=== PATIENT | female | born 1970 | race African-American/Black ===

== ENCOUNTER 2023-11-13 10:21 | Outpatient (CLI) | payer MEDICAID, SELFPAY ==
--- NOTE | 2023-11-13 10:31 | XRR_ITS ---
PROCEDURE INFORMATION: Exam: XR Left Shoulder Exam date and time: 11/13/2023 10:35 AM Age: 52 years old Clinical indication: Injury or trauma; Other: Lifting injury; Work related; Sprain or strain; Shoulder; Left; Injury date: 3-4 weeks ago; Injury details: Lifted heavy object, belives he tore something, hurts when raised; Additional info: M25.512 - pain in left shoulder TECHNIQUE: Imaging protocol: Radiologic exam of the left shoulder. Views: 2 or more views. COMPARISON: No relevant prior studies available. FINDINGS: Bones/joints: Moderate glenohumeral spurring with subarticular cysts and irregularity of the inferior glenoid. Mild acromioclavicular spurring. No fracture or dislocation.. Soft tissues: Normal. XR/XR shoulder LT min 2V* [id number] IMPRESSION: Osteoarthritis particularly involving the inferior glenoid.
== END 2023-11-13 10:22 | disposition home or self-care (01) ==
PROVIDERS: PCP Nurse Practitioner Family; Visit Provider Nurse Practitioner Family
DX: M25.512 Pain in left shoulder (principal); M19.012 Primary osteoarthritis, left shoulder; M25.712 Osteophyte, left shoulder; M85.612 Other cyst of bone, left shoulder
CPT/HCPCS: 73030

== ENCOUNTER 2023-12-30 13:57 | Outpatient (CLI) | payer MEDICAID, SELFPAY ==
--- NOTE | 2023-12-30 14:15 | US_ITS ---
WS: [id number] ULTRASOUND SOFT TISSUES LEFT supraclavicular region. HISTORY: R22.9 - Localized swelling, mass and lump, unspecified COMPARISON: None available. TECHNIQUE: 2-D and color Doppler imaging is submitted. There is an abnormal mass centered in the LEFT supraclavicular region with increased vascularity. Thi s is a hypoechoic mass with a few cystic areas and increased vascularity. The largest mass measures 3 .9 x 5.0 x 3.7 cm. There are additional masses which are much smaller along the LEFT cervical chain. US/US soft tissue head neck [id number] IMPRESSION: Abnormal soft tissue masses along the LEFT supraclavicular and cervical chain. Favor lymphadenopathy. Findings suspicious for metastatic disease or lymphadeno germania from lymphoma. Recommend additional evaluation to determine the source of the adenopathy.
--- NOTE | 2023-12-30 16:00 | MR_ITS ---
WS: [id number] MRI LEFT SHOULDER HISTORY: M25.512 - Pain in left shoulder COMPARISON: None available. TECHNIQUE: Multiplanar sequences of the shoulder joint are submitted. Mild AC joint arthropathy. Distal clavicular osteophyte encroaches upon the distal supraspinatus tend on. No significant subacromial impingement. No fluid in the subacromial or subdeltoid bursa. Normal p osition of the biceps tendon. No rotator cuff muscle atrophy or edema. Mild tendinopathy in the distal supraspinatus but no tear. T here is breathing motion artifact limiting evaluation. Subscapularis and infraspinatus tendons appear appropriate. Suspect superior labral tear. There are multiple T2 foci within the bone surrounding the shoulder highly concerning for metastatic bone disease. Largest area of is involvement is the proximal LEFT humerus measuring 4.4 x 5.1 cm. The re are additional enlarged lymph nodes in the LEFT chest wall adjacent to the pectoralis muscle. MR/MR shoulder LT wo con* [id number] IMPRESSION: 1. Extensive bone lesions highly suspicious for metastatic disease involving t he osseous structures of the shoulder. 2. Lymphadenopathy, partially visualized along the anterior LEFT chest wall. R ecommend additional evaluation of the chest abdomen and pelvis to identify etio logy of the lymphadenopathy. 3. Mild AC joint arthropathy. 4. Mild tendinopathy in the distal supraspinatus tendon. 5. Superior labral tear. 6. No muscle atrophy or edema.
== END 2023-12-30 13:58 | disposition home or self-care (01) ==
LOC: RAD 13:57
PROVIDERS: PCP Nurse Practitioner Family; Visit Provider Registered Nurse
DX: R22.9 Localized swelling, mass and lump, unspecified (principal); M89.9 Disorder of bone, unspecified; M12.9 Arthropathy, unspecified
CPT/HCPCS: 73221; 76536

== ENCOUNTER → 2023-12-31 11:53 | Outpatient (BNVA) | payer MEDICAID, SELFPAY | PROVIDERS: PCP Nurse Practitioner Family; Visit Provider Registered Nurse | DX: C79.51 Secondary malignant neoplasm of bone (principal) | CPT/HCPCS: 80053; 85025 ==

== ENCOUNTER 2024-01-22 11:48 | Oncology outpatient (recurring) (ONCR) | payer MEDICAID, SELFPAY ==
[2024-01-22 13:49] LABS: Basophils # 0.1 10^3/uL (0.0-0.1); Basophils % 0.6 %; Eosinophils # 0.1 10^3/uL (0.0-0.8); Eosinophils % 1.5 %; Hematocrit 34.6 % (37-53); Lymphocytes # 1.4 10^3/uL (0.8-4.8); Lymphocytes % 17.8 %; Mean Corpuscular HGB Conc 33.5 g/dL (30-55); Mean Corpuscular Hemoglobin 31.4 pg (27-33); Mean Corpuscular Volume 93.8 fl (82-101); Mean Platelet Volume 9.2 fL (7.4-10.4); Monocytes # 0.4 10^3/uL (0.2-0.9); Monocytes % 5.2 %; Neutrophils # 5.54 10^3/uL (1.8-7.7); Neutrophils % 70.9 %; Nucleated Red Blood Cells % 0.3 %; Platelet Count 277 10^3/cmm (157-399); Red Blood Count 3.69 10^6/uL (3.85-5.65); Red Cell Distribution Width 13.6 % (12.1-15.1); White Blood Count 7.82 10^3/uL (3.29-11.43)
[2024-01-22 14:14] LABS: Alanine Aminotransferase 15 U/L (0-41); Albumin Level 3.7 g/dL (3.5-5.2); Alkaline Phosphatase 232 U/L (40-130); Anion Gap 14.9 (5-19); Aspartate Amino Transferase 22 U/L (0-40); Blood Urea Nitrogen 15 mg/dL (6-20); Calcium 9.2 mg/dL (8.5-10.5); Carbon Dioxide 25 mmol/L (22-29); Chloride 105 mmol/L (98-107); Creatinine Clr Calc Pharmacy 96.6224; Globulin 3.5 g/dL (1.3-4.6); Glucose 83 mg/dL (65-115); Osmolality Calculated 292 mOsm/kg (285-295); Potassium 3.9 mmol/L (3.5-5.1); Sodium 141 mmol/L (136-145); Total Bilirubin 0.3 mg/dL (0.15-1.2); Total Protein 7.2 g/dL (6.6-8.7)
== END 2024-02-02 23:59 | disposition home or self-care (01) ==
PROVIDERS: PCP Nurse Practitioner Family; Visit Provider Internal Medicine Medical Oncology
DX: C61 Malignant neoplasm of prostate (principal)
CPT/HCPCS: 36415; 80053; 84153; 85025

== ENCOUNTER 2024-02-05 11:22 | Day surgery (SDC) | payer MEDICAID, SELFPAY ==
--- NOTE | 2024-02-05 11:40 | SC_ITS ---
WS: [id number] Exam: C-arm FL for CVA [id number] Date/Time of Exam: 02/05/2024 12:48 PM Reason For Exam: port placement Multiple limited intraoperative C-arm images of the upper RIGHT chest are submitted. Final images dep ict a right-sided Port-A-Cath in place. Images were obtained for procedural purposes and visualizatio n.
[2024-02-05 11:53] VITALS: BP 130/79; PULSE 63; RESP 18; TEMP 36.3; O2SAT 98
[2024-02-05 11:56] VITALS: BMI 31.4
[2024-02-05] MEDS: sodium chloride 0.9% 1,000 ML 30 ML IV (12:16)
--- NOTE | 2024-02-05 12:59 | ANES.PREANE2 ---
Pre-Anesthetic Assessment Height/Weight: Height 5 ft 6 in Weight 195 lb Temp Pulse Resp BP Pulse Ox O2 Del Method 97.3 F L 63 18 130/79 98 Room Air 02/05/24 11:53 02/05/24 11:53 02/05/24 11:53 02/05/24 11:53 02/05/24 11:53 02/05/24 12:02 Preop Diagnosis: Prostate cancer Operation Date: 02/05/24 13:00 Proposed Procedures p Portacath Placement 07121, Z95.828(Not Applicable) - Raji Brito MD Was Beta Anna Marie taken within 24 hours: N/A Was Clonidine taken within 24 hours: N/A Last intake: Intake Last Liquid Date 02/05/24 Last Liquid Time 06:30 Last Solid Date 02/04/24 Last Solid Time 17:30 Social No alcohol and No tobacco Exam alert, oriented x 3, clear to auscultation bilaterally and regular rate & rhythm Airway Submandibular: within normal limits Cervical ROM: within normal limits Mallampati: Class II Dentition: full Anesthetic Plan ASA status: 3 Anesthesia: MAC Other: No prior issues with anesthesia NPO since yesterday Prior smoker, quit a year ago Stage IV prostate cancer with mets to the bone. Plan for chemotherapy following port placement METs greater than 4 Labs 01/22/2024 reviewed Plan for MAC anesthetic Medications/Allergies Home Medications Medication Instructions Recorded Confirmed Last Taken Type bicalutamide 50 mg tablet 50 mg PO DAILY #30 tabs 01/22/24 02/04/24 02/04/24 Rx acetaminophen 325 mg tablet 325 mg PO QID PRN Pain, Mild 01/29/24 02/05/24 02/05/24 History (Tylenol) enzalutamide 40 mg tablet 160 mg (4 x 40 mg) PO DAILY #120 01/30/24 02/04/24 02/04/24 Rx tabs ferrous sulfate 325 mg (65 mg 325 mg PO BID 02/05/24 02/05/24 02/05/24 History iron) tablet (FeroSul) Allergies Allergy/AdvReac Type Severity Reaction Status Date / Time No Known Allergies Allergy Verified 02/04/24 12:26 Current Medications Generic Name Dose Route Start Last Admin Trade Name Freq PRN Reason Stop Dose Admin Sodium Chloride 1,000 mls @ 30 mls/hr 02/05/24 11:45 02/05/24 12:16 Sodium Chloride 0.9% IV 02/06/24 11:44 30 mls/hr .Q24H LORA Administration PFSH Anesthesia Medical History Heatstroke Prostate cancer Surgical History History of lymph node biopsy (2019) History of prostate biopsy (01/19/24) Family History Father Colon cancer Brother Bone cancer Other Diabetes Hypertension Social History Smoking and tobacco/nicotine status: former use of tobacco/nicotine Quit status (tobacco/nicotine): has quit using Year quit tobacco: 2022 Former quit date comment: He previously smoked 1 PPD. Alcohol intake: former Year of sobriety/quit date alcohol: 2022 Former alcohol use details: He was never a heavy drinker. Substance/Drug Use: former Adopted: No Caregiver/support person: No Lives independently: No service: No Current occupational status: unemployed Do you think of yourself as: Straight/Heterosexual Current gender identity: Male Data Anesthesia Cardiac Studies: No Data to Display
--- NOTE | 2024-02-05 13:01 | W.PM.OPSUD ---
Surgery/Procedure H&P Update DATE OF PROCEDURE: February 05, 2024 DATE H&P PERFORMED: 01/29/24 H&P UPDATE INFORMATION: I have reviewed H&P completed within last 30 days, I have examined patient prior to procedure and No changes to prior documentation PREOP DIAGNOSIS: Prostate cancer PLANNED PROCEDURE: Operation Date: 02/05/24 13:00 Proposed Procedures p Portacath Placement 18461, Z95.828(Not Applicable) - Raji Brito MD
[2024-02-05] MEDS: ceFAZolin 2,000 mg SDV 2000 MG IVP (13:12)
[2024-02-05] MEDS: heparin, porcine 1,000 unit/mL INJ 10 mL 10000 UNIT INTRACATH (13:43)
[2024-02-05] MEDS: lidocaine-epi 1% 20 mL INJ 3 ML INJECTION (13:44)
[2024-02-05] MEDS: BUPivacaine 0.25% INJ 10 mL 3 ML INJECTION (13:45)
--- NOTE | 2024-02-05 13:59 | W.PM.BPONFUL ---
Pathology: None Implant(s): Port-A-Cath Anesthesia: MAC Complications: None Brief history/preop diagnosis: 53-year-old male history of prostate cancer who requires a port for chemotherapy. Full operative report: Patient was brought into the operating room and a timeout was carried out. Procedure was done under MAC. Patient was placed supine with the arms tucked and in Trendelenburg. Patient was prepped and draped in the usual sterile fashion. Using ultrasound guidance the right internal jugular vein was accessed. A guidewire was then placed down to the atriocaval junction using fluoroscopy. The finder needle was removed and the guidewire was secured. I then turned my attention to creating a pocket over the right chest. Make sure to locally infiltrated using plain lidocaine and bupivacaine at the site of the pocket and throughout the tunnel site. I confirmed adequate hemostasis at the pocket. I then proceeded to place the port that was already preassembled and flushed with heparinized saline and the chest pocket. I tunneled the catheter from the chest to the neck at the site where I accessed the internal jugular vein. I measured and adjusted the length of the catheter so it would reach the atrial caval junction. At this point, I used a dilator to dilate the tract into the internal jugular vein using fluoroscopy. I removed the guidewire and proceeded to thread the central venous catheter through the introducer. In the process, I removed the sheath as a completely pushed the catheter into the internal jugular vein. I then confirmed adequate placement of the catheter by performing intraoperative interpretation of fluoroscopy. The tip of the catheter was confirmed to be placed in the atriocaval junction. There were no kinks noted throughout the trajectory of the catheter. I then proceeded to test the port and was satisfied with its functionality. I proceeded to flushed the catheter without any issues. I then hep-locked the port. Skin was closed using deep dermal 3-0 Vicryl, subcuticular 4-0 Monocryl, and Dermabond. Patient was then transferred to PACU without any complications. Condition: Stable Dispostion: Home
[2024-02-05 14:04] VITALS: BP 125/84; PULSE 68; RESP 16; TEMP 36.2; O2SAT 97
[2024-02-05 14:10] VITALS: BP 130/99; PULSE 79; RESP 16; O2SAT 98
[2024-02-05 14:15] VITALS: BP 131/78; PULSE 65; RESP 16; O2SAT 99
[2024-02-05 14:20] VITALS: BP 129/83; PULSE 62; RESP 16; TEMP 36.2; O2SAT 99
[2024-02-05 14:23] VITALS: BP 125/80; PULSE 64; RESP 17; TEMP 36.4; O2SAT 100
--- NOTE | 2024-02-05 15:02 | ANE.PACU2 ---
Inpatient post-anesthesia follow up: Airway intact: Yes Vital signs: Temperature 97.6 F Pulse Rate 64 Respiratory Rate 17 Blood Pressure 125/80 Pulse Oximetry 100 Oxygen Delivery Me thod Room Air Oxygen Flow Rate Fraction of Inspir ed Oxygen Hydration adequate: Yes Nausea and vomiting: No Pain level: 1 Mental status: Baseline
== END 2024-02-05 15:02 | disposition home or self-care (01) ==
PROVIDERS: PCP Nurse Practitioner Family; Visit Provider Student in an Organized Health Care Education/Training Program
PROC: (CPT 36561; principal; 2024-02-05 13:00)
DX: C61 Malignant neoplasm of prostate (principal); Z87.891 Personal history of nicotine dependence
CPT/HCPCS: 36561; 76000; 77001; C1788; J0690; J1644; J2250; J2704; J3010; J3490; J7030

== ENCOUNTER 2024-02-14 12:58 | Inpatient (IN) | payer MEDICAID, SELFPAY ==
[2024-02-14] VITALS (7 sets, daily range): BP systolic 128–159; BP diastolic 75–81; PULSE 78–89; RESP 15–16; TEMP 36.8–37.2; O2SAT 95–100
--- NOTE | 2024-02-14 13:45 | P.HP_ITS ---
Providers/Chief Complaint Admitting Physician: Gennaro Welsh MD Primary Care Provider: GADIEL Oakes Chief Complaint: 278-2 History of Present Illness Desi Lee is a 53 year old male with a past medical history of prostate cancer diagnosed in 2019, who presents to [facility] as a transfer from [facility], due to erythema, swelling, tenderness, warmth around his recent right chest port placement for chemotherapy. Patient tells me that he got chemotherapy last Friday, he is due for chemotherapy next week, for the last few days he has noted increased swelling, erythema, drainage around his right chest port site. He does tell me that when he did get chemotherapy they did access his port, but no evidence of infection at that point. No fevers, does report fatigue, malaise, no nausea, vomiting, no chest pain. Review of Systems Const: Reports: chills, fatigue and malaise Card: Denies: chest pain Resp: Denies: dyspnea GI: Denies: abdominal pain : Denies: flank pain Medications/Allergies Home Medications Medication Instructions Recorded Confirmed Last Taken Type bicalutamide 50 mg tablet 50 mg PO DAILY #30 tabs 01/22/24 02/10/24 02/04/24 Rx acetaminophen 325 mg tablet 325 mg PO QID PRN Pain, Mild 01/29/24 02/10/24 02/05/24 History (Tylenol) enzalutamide 40 mg tablet 160 mg (4 x 40 mg) PO DAILY #120 01/30/24 02/10/24 02/04/24 Rx tabs ferrous sulfate 325 mg (65 mg 325 mg PO BID 02/05/24 02/10/24 02/05/24 History iron) tablet (FeroSul) lorazepam 1 mg tablet 0.5 - 1 mg (0.5 - 1 x 1 mg) PO Q6H 02/06/24 02/10/24 Unknown Rx PRN severe nausea #30 tabs prednisone 5 mg tablet 5 mg PO BID #42 tabs 02/06/24 02/10/24 Unknown Rx prochlorperazine maleate 10 mg 10 mg PO Q4H PRN mild nausea #30 02/06/24 02/10/24 Unknown Rx tablet (Compazine) tabs hydrocodone 5 mg-acetaminophen 325 1 tab PO Q4H PRN pain 5 days #30 02/10/24 02/10/24 Unknown Rx mg tablet tabs lorazepam 1 mg tablet 0.5 - 1 mg (0.5 - 1 x 1 mg) PO Q6H 02/10/24 Unknown Rx PRN Severe Nausea #30 tabs prednisone 5 mg tablet 5 mg PO BID #42 tabs 02/10/24 Unknown Rx prochlorperazine maleate 10 mg 10 mg PO Q4H PRN Mild Nausea #30 02/10/24 Unknown Rx tablet (Compazine) tabs Allergies Allergy/AdvReac Type Severity Reaction Status Date / Time No Known Allergies Allergy Verified 02/04/24 12:26 PFSH Acute PFSH: Medical History Heatstroke Prostate cancer Surgical History History of lymph node biopsy (2019) History of prostate biopsy (01/19/24) Family History Father Colon cancer Brother Bone cancer Other Diabetes Hypertension Social History Smoking and tobacco/nicotine status: former use of tobacco/nicotine Quit status (tobacco/nicotine): has quit using Year quit tobacco: 2022 Former quit date comment: He previously smoked 1 PPD. Alcohol intake: former Year of sobriety/quit date alcohol: 2022 Former alcohol use details: He was never a heavy drinker. Substance/Drug Use: former Adopted: No Caregiver/support person: No Lives independently: No service: No Current occupational status: unemployed Do you think of yourself as: Straight/Heterosexual Current gender identity: Male Physical Exam Const: COMMON NORMALS: no acute distress and patient oriented x3 Chest: OTHER: Right chest port, with surrounding erythema, swelling, tenderness, warmth Resp: COMMON NORMALS: normal respiratory effort, No retractions, No use of accessory muscles and clear to auscultation bilaterally AUSCULTATION: clear to auscultation bilaterally Cardio: COMMON NORMALS: no JVD, regular rate, regular rhythm, S1 normal heart sound present and S2 normal heart sound present RATE: regular rate RHYTHM: regular rhythm HEART SOUNDS: S1 normal heart sound present and S2 normal heart sound present GI: COMMON NORMALS: Normal to inspection, nondistended, normoactive bowel sounds present, Soft to palpation and non-tender Extremity: COMMON NORMALS: no calf tenderness and no pedal edema Neuro: COMMON NORMALS: patient oriented x3 Psych: COMMON NORMALS: mental status grossly normal A&P Assessment and plan (1) Infection due to Port-A-Cath: (2) Metastatic cancer to bone: (3) Prostate cancer: Plan Right chest Port-A-Cath infection ? Immunocompromise state, prostate cancer on chemotherapy ? Plan ? Placed on isolation precautions ? Blood cultures ? Follow wound cultures and blood cultures drawn from [facility] ? Neurosurgery consulted ? Continue vancomycin -continue Zosyn # Follow inflammatory markers # Full code Lovenox for DVT prophylaxis Attestations Medical Necessity Statement*: Patient requires hospitalization, inpatient, greater than 2 midnights, for right chest port infection Diagnoses Infection due to Port-A-Cath T80.219A Metastatic cancer to bone C79.51 Prostate cancer C61
--- NOTE | 2024-02-14 14:28 | PM.CONSULT ---
Providers/Reason For Consult Consulting Physician/Specialty*: General Surgery Reason for Consult*: Or signs infection Attending Physician: Gennaro Welsh MD Primary Care Provider: GADIEL Oakes History of Present Illness History of Present Illness Desi Lee is a 53 year old male 53-year-old male with history of prostate cancer receiving chemotherapy. He was transferred to our hospital from an outside institution as this morning and he noted significant drainage from his Chemo-Port site. He had a port placed on February 04 and was able to receive 1 chemotherapy last week. He states that the area also appears warm to the touch and slightly tender. He was referred to our institution with a concern of port site infection. Review of Systems General: Reports: 10 or more systems reviewed and unremarkable except in HPI and below Medications/Allergies Home Medications Medication Instructions Recorded Confirmed Last Taken Type bicalutamide 50 mg tablet 50 mg PO DAILY #30 tabs 01/22/24 02/10/24 02/04/24 Rx acetaminophen 325 mg tablet 325 mg PO QID PRN Pain, Mild 01/29/24 02/10/24 02/05/24 History (Tylenol) enzalutamide 40 mg tablet 160 mg (4 x 40 mg) PO DAILY #120 01/30/24 02/10/24 02/04/24 Rx tabs ferrous sulfate 325 mg (65 mg 325 mg PO BID 02/05/24 02/10/24 02/05/24 History iron) tablet (FeroSul) lorazepam 1 mg tablet 0.5 - 1 mg (0.5 - 1 x 1 mg) PO Q6H 02/06/24 02/10/24 Unknown Rx PRN severe nausea #30 tabs prednisone 5 mg tablet 5 mg PO BID #42 tabs 02/06/24 02/10/24 Unknown Rx prochlorperazine maleate 10 mg 10 mg PO Q4H PRN mild nausea #30 02/06/24 02/10/24 Unknown Rx tablet (Compazine) tabs hydrocodone 5 mg-acetaminophen 325 1 tab PO Q4H PRN pain 5 days #30 02/10/24 02/10/24 Unknown Rx mg tablet tabs lorazepam 1 mg tablet 0.5 - 1 mg (0.5 - 1 x 1 mg) PO Q6H 02/10/24 Unknown Rx PRN Severe Nausea #30 tabs prednisone 5 mg tablet 5 mg PO BID #42 tabs 02/10/24 Unknown Rx prochlorperazine maleate 10 mg 10 mg PO Q4H PRN Mild Nausea #30 02/10/24 Unknown Rx tablet (Compazine) tabs Allergies Allergy/AdvReac Type Severity Reaction Status Date / Time No Known Allergies Allergy Verified 02/04/24 12:26 PFSH Acute PFSH: Medical History Heatstroke Prostate cancer Surgical History History of lymph node biopsy (2019) History of prostate biopsy (01/19/24) Family History Father Colon cancer Brother Bone cancer Other Diabetes Hypertension Social History Smoking and tobacco/nicotine status: former use of tobacco/nicotine Quit status (tobacco/nicotine): has quit using Year quit tobacco: 2022 Former quit date comment: He previously smoked 1 PPD. Alcohol intake: former Year of sobriety/quit date alcohol: 2022 Former alcohol use details: He was never a heavy drinker. Substance/Drug Use: former Adopted: No Caregiver/support person: No Lives independently: No service: No Current occupational status: unemployed Do you think of yourself as: Straight/Heterosexual Current gender identity: Male Vitals/I&O/Wt Last Vital Signs Temp 98.5 F 02/14/24 13:32 Pulse 78 02/14/24 13:32 Resp 16 02/14/24 13:32 BP 136/81 02/14/24 13:32 Pulse Ox 99 02/14/24 13:32 O2 Del Method Room Air 02/14/24 13:32 Physical Exam Narrative: General : Patient is well developed , no acute distress, oriented x3 Head : Normal cephalic, a-traumatic. Nose : Mucous membranes are without erythema. Lungs : Equal chest rise bilaterally, no use of accessory muscles, trachea is midline. Chest: On the right upper chest site appears to be healing well there is very minimal drainage there are some minimal erythema surrounding the port and the area feels slightly hot to touch. Abdomen : Soft, ND, NT, no g/r/m Extremities : No edema. Upper extremities are normal bilaterally. Back : non-tender to palpation, no CVA tenderness. A&P Assessment and plan (1) Infection due to Port-A-Cath: After complete history, physical examination and review of all available clinical data the following is my assessment. Patient had recent port placement and now presents with serosanguineous drainage and pain. Vital signs have been stable, his white count has been normal. No fever. Cultures were taken at outside facility and we are repeating blood cultures here. On my examination of the patient I think this is at the moment most likely represents a retained seroma that spontaneously drained rather than an active site infection. I will reevaluate the wound early in the morning tomorrow to the site of the port needs to be removed. In the meantime I do recommend that the patient continues IV antibiotics and pain control. We will also follow-up with blood cultures, in the case of any positive we will Cloral turns we will definitely proceed with removal. I have explained to the patient that in the case of removal she will require 2 to 3 weeks of antibiotics and he cannot get another or place during that time, in the meantime he can probably get his chemotherapy via a temporary line. Patient shows understanding is agreeable with the plan, I have discussed the case with medical team Coding Level of Care Code 00431 Diagnoses Infection due to Port-A-Cath T80.219A
[2024-02-14 15:02] LABS: Erythrocyte Sedimentation Rate 13 mm/hr (0-10)
[2024-02-14 15:16] LABS: Estmated Average Glucose 128; Hemoglobin A1C 6.1 % (4.0-6.0)
[2024-02-14 15:36] LABS: NT Pro B Type Natriuretic Pept 61 pg/mL (0-125); Thyroid Stimulating Hormone 2.73 uIU/mL (0.27-4.20)
[2024-02-14] MEDS: morphine 4 mg/mL SDV 1 mL 2 MG IVP ×2 (15:37→18:41)
[2024-02-14 15:47] LABS: C Reactive Protein 62.4 mg/L (0.0-4.9); Chol HDL Ratio 3.36 mg/dL (1.0-5.00); Cholesterol 225 mg/dL (0-200); HDL Cholesterol 67 mg/dL (60-100); LDL Cholesterol Calculated 133 mg/dL (50-129); LDL HDL Ratio 1.99 RATIO (0.00-3.22); Triglycerides 123 mg/dL (0-150)
[2024-02-14] MEDS: pantoprazole 40 mg SDV IVP (15:50)
[2024-02-14] MEDS: enoxaparin 40 mg/0.4 mL Syringe SUBCUT (15:50)
[2024-02-14] MEDS: piperacillin-tazobactam 3.375 GM in sodium chloride 0.9% (plus) 50 ML IV ×2 (15:51→22:05)
[2024-02-14] MEDS: sodium chloride 0.9% 1,000 ML 75 ML IV (15:51)
--- NOTE | 2024-02-14 15:55 | PHA.VACGOAL ---
Vancomycin Goal - Goal Vancomycin Goal:: 10-15 mg/L Vancomycin Indication:: SSTI - Therapy Current therapy:: Pip/Tazo Day of therpy:: Day []of [] . Actual body weight (kg): 195 lb 6.4 oz Phillips body weight: 63.8 Dosing weight (kg): 88.6 - Data Labs: Laboratory Tests 02/10/24 08:25 Creatinine 0.7 GFR Calculation 141.7 H Last dialysis session:: N/A Treatment plan:: new consult Regimen:: INITIAL DOSE 1250 MG Q12H Follow up:: WILL MONITOR AND CONTINUE TO FOLLOW UP DAILY
[2024-02-14] MEDS: vancomycin 1,250 MG/250 ML PIGGYBACK 166.67 MG IV (17:01)
[2024-02-14] MEDS: predniSONE 5 mg Tablet PO (17:28)
--- NOTE | 2024-02-14 19:18 | PC.NURSE ---
IVP MORPHINE contacted hospitalist for pt c/o of pain 12/12. pt has IVP morphine q4, medication was not due to give for another hour. order was given to administer the next dose early.
[2024-02-14] MEDS: HYDROmorphone 1 mg/mL INJ 1 mL 0.5 MG IVP (22:00)
[2024-02-15] VITALS (17 sets, daily range): BP systolic 104–155; BP diastolic 62–86; PULSE 78–99; RESP 14–19; TEMP 36.3–37.9; O2SAT 94–100
[2024-02-15] MEDS: vancomycin 1,250 MG/250 ML PIGGYBACK 166.67 MG IV (04:29)
[2024-02-15 05:34] LABS: Basophils # 0.1 10^3/uL (0.0-0.1); Eosinophils # 0.1 10^3/uL (0.0-0.8); Hematocrit 32.2 % (37-53); Lymphocytes # 0.8 10^3/uL (0.8-4.8); Lymphocytes % 18.7 %; Mean Corpuscular HGB Conc 32.3 g/dL (30-55); Mean Corpuscular Hemoglobin 30.6 pg (27-33); Mean Corpuscular Volume 94.7 fl (82-101); Mean Platelet Volume 10.3 fL (7.4-10.4); Monocytes # 0.1 10^3/uL (0.2-0.9); Monocytes % 2.5 %; Neutrophils # 2.83 10^3/uL (1.8-7.7); Neutrophils % 70.3 %; Nucleated Red Blood Cells % 0 %; Platelet Count 174 10^3/cmm (157-399); Red Cell Distribution Width 15.4 % (12.1-15.1); White Blood Count 4.02 10^3/uL (3.29-11.43)
[2024-02-15 05:59] LABS: Alanine Aminotransferase 15 U/L (0-41); Albumin Level 3.7 g/dL (3.5-5.2); Alkaline Phosphatase 347 U/L (40-130); Anion Gap 14.1 (5-19); Aspartate Amino Transferase 18 U/L (0-40); Blood Urea Nitrogen 12 mg/dL (6-20); Carbon Dioxide 22 mmol/L (22-29); Chloride 107 mmol/L (98-107); Creatinine Clr Calc Pharmacy 123.9226; Globulin 3.1 g/dL (1.3-4.6); Glomerular Filtration Rate 141.7 mL/min (90-130); Glucose 99 mg/dL (65-115); Magnesium 2.2 mg/dL (1.7-2.3); Osmolality Calculated 288 mOsm/kg (285-295); Potassium 4.1 mmol/L (3.5-5.1); Sodium 139 mmol/L (136-145); Total Bilirubin 0.6 mg/dL (0.15-1.2); Total Protein 6.8 g/dL (6.6-8.7)
[2024-02-15 06:14] LABS: Slide Review Slide Review Perform
[2024-02-15] MEDS: piperacillin-tazobactam 3.375 GM in sodium chloride 0.9% (plus) 50 ML IV ×2 (06:49→21:18)
--- NOTE | 2024-02-15 08:30 | PC.NURSE ---
[facility] Results read that second set of blood cultures drawn on 02/14/24 at 0718 were positive for gram positive cocci in clusters.
[2024-02-15] MEDS: predniSONE 5 mg Tablet PO ×2 (08:46→18:29)
[2024-02-15] MEDS: acetaminophen 325 mg Tablet 650 MG PO (08:57)
--- NOTE | 2024-02-15 12:16 | P.PN_ITS ---
Subjective 2 Subjective: Patient was seen this morning no fevers, no chills, continues to complain of some warmth and erythema around his port site, he has not eaten any breakfast this morning, he swears by this Vitals/I&O/Wt Last Vital Signs Temp 98.8 F 02/15/24 11:17 Pulse 84 02/15/24 11:17 Resp 18 02/15/24 11:17 BP 121/74 02/15/24 11:17 Pulse Ox 97 02/15/24 11:17 O2 Del Method Room Air 02/15/24 11:17 02/14/24 02/15/24 02/15/24 22:59 06:59 14:59 Intake Total 1090.000 / 1090.000 250 / 0775.852 0570 / 1250 Balance 1090.000 / 1090.000 250 / 5863.850 8347 / 1250 Weight last 48 hrs Weight 87.997 kg Weight 88.632 kg Physical Exam 2 Const: COMMON NORMALS: no acute distress and patient oriented x3 Resp: COMMON NORMALS: normal respiratory effort, No retractions, No use of accessory muscles and clear to auscultation bilaterally AUSCULTATION: clear to auscultation bilaterally Cardio: COMMON NORMALS: regular rate, regular rhythm, S1 normal heart sound present and S2 normal heart sound present RATE: regular rate RHYTHM: r egular rhythm HEART SOUNDS: S1 normal heart sound present and S2 normal heart sound present GI: COMMON NORMALS: Normal to inspection, nondistended, normoactive bowel sounds present and non-tender Extremity: COMMON NORMALS: no pedal edema Neuro: COMMON NORMALS: patient oriented x3 Psych: COMMON NORMALS: mental status grossly normal Data 02/15/24 04:39 02/15/24 04:39 Micro: Microbiology 02/14/24 14:51 Blood Culture - Preliminary Blood 02/14/24 14:53 Blood Culture - Preliminary Blood SPECIMEN COLLECTED A&P Assessment and plan (1) Infection due to Port-A-Cath: (2) Metastatic cancer to bone: (3) Prostate cancer: (4) Gram-positive bacteremia: Plan Right chest Port-A-Cath infection -Gram-positive bacteremia, 2 out of 4 blood cultures positive -2/[address] [facility] ? Immunocompromise state, prostate cancer on chemotherapy ? Plan ? Placed on isolation precautions ? follow Blood cultures for identification ? Follow wound cultures and blood cultures drawn from [facility] ? Neurosurgery consulted ? Continue vancomycin -continue Zosyn # Follow inflammatory markers # Full code Lovenox for DVT prophylaxis To general surgery, plan on Port-A-Cath removal culture the tip of the Port-A-Cath, will repeat blood cultures after Port-A-Cath is removed in the morning, continue IV antibiotics Attestations 2 Medical Necessity Statement*: Patient requires hospitalization for gram-positive bacteremia, right chest Port-A-Cath infection Diagnoses Infection due to Port-A-Cath T80.219A Metastatic cancer to bone C79.51 Prostate cancer C61 Gram-positive bacteremia R78.81
--- NOTE | 2024-02-15 12:28 | P.PN_ITS ---
Subjective 2 Subjective: Patient is doing well, stable no significant additional discharge but blood cultures are positive today. Vitals/I&O/Wt Last Vital Signs Temp 98.8 F 02/15/24 11:17 Pulse 84 02/15/24 11:17 Resp 18 02/15/24 11:17 BP 121/74 02/15/24 11:17 Pulse Ox 97 02/15/24 11:17 O2 Del Method Room Air 02/15/24 11:17 02/14/24 02/15/24 02/15/24 22:59 06:59 14:59 Intake Total 1090.000 / 1090.000 250 / 4689.945 6996 / 1250 Balance 1090.000 / 1090.000 250 / 5387.199 8406 / 1250 Weight last 48 hrs Weight 194 lb Weight 195 lb 6.4 oz Physical Exam 2 Chest: OTHER: Right upper chest Port-A-Cath area appears clean there is some tenderness and redness to examination Data 02/15/24 04:39 02/15/24 04:39 Micro: Microbiology 02/14/24 14:51 Blood Culture - Preliminary Blood 02/14/24 14:53 Blood Culture - Preliminary Blood SPECIMEN COLLECTED A&P Assessment and plan (1) Gram-positive bacteremia: (2) Infection due to Port-A-Cath: Plan Due to positive blood cultures I have offered the patient to remove the Port-A-Cath. I Discussed with the patient all recent benefits including the risk of recurrent infection, bleeding, need for additional surgical procedures, need for additional access to get chemotherapy. I have informed the patient that the wound will remain partially open and he will need to pack it daily. He shows understanding. All questions were answered and patient agrees with the plan Attestations 2 Medical Necessity Statement*: Per medical team Coding Level of Care Code Acute Code for Chg Fwd Diagnoses Gram-positive bacteremia R78.81 Infection due to Port-A-Cath T80.219A
--- NOTE | 2024-02-15 13:09 | P.ANESASSM_ITS ---
Pre-Anesthetic Assessment Height/Weight: Height 5 ft 6 in Weight 194 lb Temp Pulse Resp BP Pulse Ox O2 Del Method 97.3 F L 78 18 118/81 94 Room Air 02/15/24 13:00 02/15/24 13:00 02/15/24 13:00 02/15/24 13:00 02/15/24 13:00 02/15/24 13:00 Preop Diagnosis: port infection Operation Date: 02/15/24 01:00 Proposed Procedures p Portacath Removal(Right) - Christiano Barbosa MD Was Beta Anna Marie taken within 24 hours: N/A Was Clonidine taken within 24 hours: N/A Last intake: 9pm yesterday Social No alcohol and No tobacco Exam alert, oriented x 3, clear to auscultation bilaterally and regular rate & rhythm Airway Submandibular: within normal limits Cervical ROM: within normal limits Mallampati: Class II Dentition: full Anesthetic Plan ASA status: 3E Anesthesia: MAC Other: No prior issues with anesthesia NPO since Patient recently undergone port placement with MAC anesthetic without issues Patient currently bacteremic, suspected source from port Prior smoker, quit a year ago Stage IV prostate cancer with mets to the bone. METs greater than 4 Plan for MAC anesthetic Medications/Allergies Home Medications Medication Instructions Recorded Confirmed Last Taken Type bicalutamide 50 mg tablet 50 mg PO DAILY #30 tabs 01/22/24 02/14/24 02/13/24 Rx acetaminophen 325 mg tablet 325 mg PO QID PRN Pain, Mild 01/29/24 02/14/24 02/14/24 History (Tylenol) ferrous sulfate 325 mg (65 mg 325 mg PO BID 02/05/24 02/14/24 02/13/24 History iron) tablet (FeroSul) prochlorperazine maleate 10 mg 10 mg PO Q4H PRN mild nausea #30 02/06/24 02/14/24 02/13/24 Rx tablet (Compazine) tabs hydrocodone 5 mg-acetaminophen 325 1 tab PO Q4H PRN pain 5 days #30 02/10/24 02/14/24 Unknown Rx mg tablet tabs lorazepam 1 mg tablet 0.5 - 1 mg (0.5 - 1 x 1 mg) PO Q6H 02/10/24 02/14/24 02/13/24 Rx PRN Severe Nausea #30 tabs prednisone 5 mg tablet 5 mg PO BID #42 tabs 02/10/24 02/14/24 02/13/24 Rx enzalutamide 40 mg tablet 80 mg PO BID 02/14/24 02/14/24 02/13/24 History Allergies Allergy/AdvReac Type Severity Reaction Status Date / Time No Known Allergies Allergy Verified 02/04/24 12:26 Current Medications Generic Name Dose Route Start Last Admin Trade Name Freq PRN Reason Stop Dose Admin Acetaminophen 650 mg 02/14/24 13:31 02/15/24 08:57 Acetaminophen 325 Mg Tablet PO 650 mg Q6H PRN Administration Mild/Mod Pain Or Temp >/= 101 Enoxaparin Sodium 40 mg 02/14/24 13:45 02/14/24 15:50 Enoxaparin 40 Mg/0.4 Ml Syringe SUBCUT 40 mg Q24H LORA Administration Hydromorphone HCl 0.5 mg 02/14/24 21:24 02/14/24 22:00 Hydromorphone 1 Mg/Ml Inj 1 Ml IVP 0.5 mg Q2H PRN Administration DISCOMFORT Sodium Chloride 1,000 mls @ 75 mls/hr 02/14/24 13:45 02/15/24 09:00 Sodium Chloride 0.9% IV Infused .[id number] LORA Infusion Piperacillin Sod/Tazobactam 50 mls @ 12.5 mls/hr 02/14/24 15:00 02/15/24 06:49 Sod 3.375 gm/ Sodium Chloride IV 12.5 mls/hr Q8H LORA Administration Vancomycin HCl 1,250 mg in 250 mls @ 166.667 mls/hr 02/14/24 16:00 02/15/24 07:12 Vancocin IV Infused Q12H OLRA Infusion Pantoprazole Sodium 40 mg 02/14/24 13:45 02/14/24 15:50 Pantoprazole 40 Mg Sdv IVP 40 mg Q24H LORA Administration Prednisone 5 mg 02/14/24 18:00 02/15/24 08:46 Prednisone 5 Mg Tablet PO 5 mg BID LORA Administration PFSH Anesthesia Medical History Heatstroke Prostate cancer Surgical History History of lymph node biopsy (2019) History of prostate biopsy (01/19/24) Family History Father Colon cancer Brother Bone cancer Other Diabetes Hypertension Social History Smoking and tobacco/nicotine status: former use of tobacco/nicotine Quit status (tobacco/nicotine): has quit using Year quit tobacco: 2022 Former quit date comment: He previously smoked 1 PPD. Alcohol intake: former Year of sobriety/quit date alcohol: 2022 Former alcohol use details: He was never a heavy drinker. Substance/Drug Use: former Adopted: No Caregiver/support person: No Lives independently: No service: No Current occupational status: unemployed Do you think of yourself as: Straight/Heterosexual Current gender identity: Male Data Anesthesia 02/15/24 04:39 02/15/24 04:39 Short CBC 02/15/24 Range/Units 04:39 WBC 4.02 (3.29-11.43) 10^3/uL Hgb 10.40 L (11.27-16.99) g/dL Hct 32.2 L (37-53) % MCV 94.7 (82-101) fl Plt Count 174 (157-399) 10^3/cmm Neut % (Auto) 70.3 % Neut # (Auto) 2.83 (1.8-7.7) 10^3/uL BMP 02/15/24 04:39 Sodium 139 Potassium 4.1 Chloride 107 Carbon Dioxide 22 BUN 12 Creatinine 0.7 Glucose 99 Calcium 7.0 L Cardiac Enzymes 02/14/24 Range/Units 14:51 NT-Pro-B Natriuret Pep 61 (0-125) pg/mL Liver Function 02/15/24 Range/Units 04:39 Total Bilirubin 0.6 (0.15-1.2) mg/dL AST 18 (0-40) U/L ALT 15 (0-41) U/L Alkaline Phosphatase 347 H (40-130) U/L Albumin 3.7 (3.5-5.2) g/dL Coags 02/14/24 14:51 ESR 13 H C-Reactive Protein 62.4 H Microbiology 02/14/24 14:51 Blood Culture - Preliminary Blood 02/14/24 14:53 Blood Culture - Preliminary Blood SPECIMEN COLLECTED Cardiac Studies: 2 No Data to Display
[2024-02-15] MEDS: lidocaine-epi 1% 20 mL INJ 10 ML INJECTION (15:11)
[2024-02-15] MEDS: BUPivacaine 0.25% INJ 10 mL INJECTION (15:12)
--- NOTE | 2024-02-15 15:20 | PM.OP ---
Operative Report Date of procedure: February 15, 2024 Pre-op diagnosis: Mediport infection Post-op diagnosis: Same Post-op findings: There was a small collection of fluid surrounding the Port-A-Cath. Procedure done: Excision of Port-A-Cath Specimens removed/disposition: Workup Pathology: wound cultures, catheter tip culture Surgeon: Christiano Barbosa MD Pediatric Neuropsychologist: YAW OR Staff Estimated blood loss: 5 Brief History: 53-year-old male with prostate cancer who had a Port-A-Cath placed to receive chemotherapy. He presented with discharge from the Port-A-Cath and there was positive wound cultures as well as blood cultures. I was consulted for excision. Procedure: Patient was brought into the OR, he was placed in a supine position. Under anesthesia and sedation was given, the right upper chest was prepped and draped in the usual sterile fashion. Timeout was conducted. Local anesthesia was infiltrated around the catheter. The catheter wound was open with a hemostat and the subcutaneous sutures were cut with a Benedict scissor, I was able to immediately visualize the catheter and it was apparent that there was significant amount of turbid fluid surrounding the catheter, cultures were taken from this fluid. I then proceeded to remove the catheter, I had my assistant auto center manager hold pressure in the neck during the removal to prevent back bleeding. The tip of the catheter was cut and sent for culture. Hemostasis was achieved I then used a #3-0 Vicryl to close the catheter tract to prevent postoperative bleeding. The wound was debrided using a 4 x 4, I then irrigated the wound until the wound appeared completely clean. The wound was then partially closed with #3-0 nylon sutures and quarter-inch iodoform packing was used to pack the wound. Hemostasis was verified before completing the procedure and a sterile dressing was then applied. At the end of the procedure all counts were correct, the patient tolerated well the procedure was transferred to PACU in stable condition.
[2024-02-15] MEDS: sodium chloride 0.9% 1,000 ML 75 ML IV (17:11)
[2024-02-15] MEDS: vancomycin 1,250 MG/250 ML PIGGYBACK 166.7 MG IV (17:12)
[2024-02-15] MEDS: HYDROmorphone 1 mg/mL INJ 1 mL 0.5 MG IVP ×2 (18:25→21:18)
[2024-02-15] MEDS: enoxaparin 40 mg/0.4 mL Syringe SUBCUT (21:08)
[2024-02-15] MEDS: pantoprazole 40 mg SDV IVP (21:09)
[2024-02-16] VITALS (8 sets, daily range): BP systolic 120–150; BP diastolic 66–83; PULSE 80–95; RESP 16–18; TEMP 36.9–37.4; O2SAT 93–100
[2024-02-16 03:19] LABS: Basophils # 0.1 10^3/uL (0.0-0.1); Basophils % 3.5 %; Eosinophils % 1.2 %; Hematocrit 33.2 % (37-53); Lymphocytes # 0.4 10^3/uL (0.8-4.8); Lymphocytes % 24.4 %; Mean Corpuscular HGB Conc 31.9 g/dL (30-55); Mean Corpuscular Hemoglobin 30.8 pg (27-33); Mean Corpuscular Volume 96.5 fl (82-101); Mean Platelet Volume 10.1 fL (7.4-10.4); Monocytes # 0.1 10^3/uL (0.2-0.9); Monocytes % 3.5 %; Neutrophils # 1.11 10^3/uL (1.8-7.7); Neutrophils % 64.5 %; Nucleated Red Blood Cells % 0 %; Platelet Count 168 10^3/cmm (157-399); Red Blood Count 3.44 10^6/uL (3.85-5.65); Red Cell Distribution Width 15.4 % (12.1-15.1); White Blood Count 1.72 10^3/uL (3.29-11.43)
[2024-02-16 03:33] LABS: Alanine Aminotransferase 14 U/L (0-41); Albumin Level 3.6 g/dL (3.5-5.2); Alkaline Phosphatase 314 U/L (40-130); Anion Gap 13.4 (5-19); Aspartate Amino Transferase 18 U/L (0-40); Blood Urea Nitrogen 10 mg/dL (6-20); Calcium 6.6 mg/dL (8.5-10.5); Carbon Dioxide 19 mmol/L (22-29); Chloride 109 mmol/L (98-107); Creatinine Clr Calc Pharmacy 108.4323; Globulin 3.2 g/dL (1.3-4.6); Glomerular Filtration Rate 121.4 mL/min (90-130); Glucose 116 mg/dL (65-115); Magnesium 2.2 mg/dL (1.7-2.3); Osmolality Calculated 284 mOsm/kg (285-295); Phosphorus 1.7 mg/dL (2.5-4.5); Potassium 4.4 mmol/L (3.5-5.1); Sodium 137 mmol/L (136-145); Total Bilirubin 0.5 mg/dL (0.15-1.2); Total Protein 6.8 g/dL (6.6-8.7)
[2024-02-16 03:49] LABS: Vancomycin Trough 9.9 ug/mL (10-15)
[2024-02-16] MEDS: vancomycin 1,250 MG/250 ML PIGGYBACK 166.7 MG IV (04:06)
[2024-02-16] MEDS: piperacillin-tazobactam 3.375 GM in sodium chloride 0.9% (plus) 50 ML IV ×3 (06:06→21:49)
[2024-02-16] MEDS: sodium chloride 0.9% 1,000 ML 75 ML IV (06:06)
[2024-02-16] MEDS: predniSONE 5 mg Tablet PO ×2 (08:34→17:11)
--- NOTE | 2024-02-16 10:50 | P.PN_ITS ---
Subjective 2 Subjective: Postoperative day 1 status post excision of Port-A-Cath. Patient doing well no significant issues pain on the Port-A-Cath site has resolved. Vitals/I&O/Wt Last Vital Signs Temp 98.9 F 02/16/24 08:00 Pulse 88 02/16/24 08:00 Resp 18 02/16/24 08:00 BP 120/77 02/16/24 08:00 Pulse Ox 97 02/16/24 08:00 O2 Del Method Room Air 02/16/24 08:00 02/15/24 02/16/24 02/16/24 22:59 06:59 14:59 Intake Total 635 / 1935 1498.75 / 3433.75 480 / 480 Output Total 0 / 0 Balance 635 / 1935 1498.75 / 3433.75 480 / 480 Weight last 48 hrs Weight 197 lb Weight 194 lb Weight 195 lb 6.4 oz Physical Exam 2 Chest: OTHER: Right upper chest wound was evaluated, packing was removed and replaced no evidence of residual purulence. Data 02/16/24 03:04 02/16/24 03:04 Micro: Microbiology 02/15/24 15:09 Gram Stain - Final Chest Anaerobic Culture - Preliminary 02/16/24 03:04 Blood Culture - Preliminary Blood SPECIMEN COLLECTED 02/14/24 14:51 Blood Culture - Preliminary Blood Staphylococcus aureus 02/14/24 14:53 Blood Culture - Preliminary Blood NEGATIVE TO DATE A&P Assessment and plan (1) Infection due to Port-A-Cath: Plan Good progression from the surgical standpoint. Patient will continue to have once a day dressing change with packing replacement while inpatient once he leaves he can have the packing replaced by family member or go to the urgent care to have it done. If the plan is to continue to chemotherapy patient can have a temporary access like a PICC line until he is ready for a new Port-A-Cath. Patient can follow-up in the surgery clinic as outpatient for suture removal and plan for new Port-A-Cath in 2 weeks Attestations 2 Medical Necessity Statement*: Per medical team Coding Level of Care Code 81791 Diagnoses Infection due to Port-A-Cath T80.219A
[2024-02-16 12:49] LABS: Iron 41 ug/dL (59-158); Total Iron Binding Capacity 205 mcg/dl; Unsaturated Iron Binding 164 ug/dL (112-347)
[2024-02-16 13:04] LABS: Procalcitonin 0.24 ng/mL (0-0.5); Vitamin B12 943 pg/mL (232-1245)
[2024-02-16] MEDS: HYDROmorphone 1 mg/mL INJ 1 mL 0.5 MG IVP (13:54)
[2024-02-16 15:13] LABS: MRSA PCR OZH (swab) NOT DETECTED (Negative)
[2024-02-16 15:51] LABS: Adenovirus Not Detected (NOT DETECT); Chlamydia Pneumoniae Not Detected (NOT DETECT); Coronavirus 229E,HKU1,NL63,OC4 Not Detected (NOT DETECT); Human Metapneumovirus Not Detected (NOT DETECT); Human Rhinovirus/Enterovirus Not Detected (NOT DETECT); Influenza A Not Detected (NOT DETECT); Influenza A H1 Not Detected (NOT DETECT); Influenza A H1-2009 Not Detected (NOT DETECT); Influenza A H3 Not Detected (NOT DETECT); Influenza B Not Detected (NOT DETECT); Mycoplasma Pneumoniae Not Detected (NOT DETECT); Parainfluenza Virus Type 1 Not Detected (NOT DETECT); Parainfluenza Virus Type 2 Not Detected (NOT DETECT); Parainfluenza Virus Type 3 Not Detected (NOT DETECT); Parainfluenza Virus Type 4 Not Detected (NOT DETECT); Respiratory Syncytial Virus A Not Detected (NOT DETECT); Respiratory Syncytial Virus B Not Detected (NOT DETECT); SARS-COV-2 Not Detected (NOT DETECT)
[2024-02-16] MEDS: vancomycin 1,500 MG/300 ML PIGGYBACK 200 MG IV (16:21)
--- NOTE | 2024-02-16 16:31 | P.PN_ITS ---
Subjective 2 Subjective: Hospital course, labs appreciated. Seen with family at bedside. Patient complaining of pain in the upper back. States pain started when the infection started recently. Has not worsened. Denies any nausea, vomiting, headache. Tmax in last 24 hours 100.3 Fahrenheit's. Vitals/I&O/Wt Last Vital Signs Temp 98.5 F 02/16/24 12:00 Pulse 89 02/16/24 12:00 Resp 18 02/16/24 13:54 BP 134/76 02/16/24 12:00 Pulse Ox 98 02/16/24 13:54 O2 Del Method Room Air 02/16/24 12:00 02/16/24 02/16/24 02/16/24 06:59 14:59 22:59 Intake Total 1498.75 / 3433.75 890 / 890 Balance 1498.75 / 3433.75 890 / 890 Weight last 48 hrs Weight 89.358 kg Weight 87.997 kg Physical Exam 2 Const: COMMON NORMALS: no acute distress and patient oriented x3 Neck/C-Spine: COMMON NORMALS: no JVD Chest: OTHER: Right chest port, with surrounding erythema, swelling, tenderness, warmth Resp: COMMON NORMALS: normal respiratory effort, No retractions, No use of accessory muscles and clear to auscultation bilaterally AUSCULTATION: clear to auscultation bilaterally Cardio: COMMON NORMALS: no JVD, regular rate, regular rhythm, S1 normal heart sound present and S2 normal heart sound present RATE: regular rate RHYTHM: regular rhythm HEART SOUNDS: S1 normal heart sound present and S2 normal heart sound present GI: COMMON NORMALS: Normal to inspection, nondistended, normoactive bowel sounds present, Soft to palpation and non-tender PALPATION: Yes Soft to palpation Extremity: COMMON NORMALS: no calf tenderness and no pedal edema Neuro: COMMON NORMALS: patient oriented x3 Psych: COMMON NORMALS: mental status grossly normal Data 02/16/24 03:04 02/16/24 03:04 Micro: Microbiology 02/15/24 15:09 Gram Stain - Final Chest Anaerobic Culture - Preliminary Wound Culture - Preliminary Coag positive Staphylococcus 02/16/24 11:05 Blood Culture - Preliminary Blood SPECIMEN COLLECTED 02/16/24 03:04 Blood Culture - Preliminary Blood SPECIMEN COLLECTED 02/14/24 14:51 Blood Culture - Preliminary Blood Staphylococcus aureus 02/14/24 14:53 Blood Culture - Preliminary Blood NEGATIVE TO DATE A&P Assessment and plan (1) Infection due to Port-A-Cath: (2) Metastatic cancer to bone: (3) Prostate cancer: (4) Staphylococcus aureus bacteremia: (5) Leukopenia: Plan Right chest Port-A-Cath infection: Staphylococcus bacteremia: Blood cultures from admission positive for Staph aureus 2 out of 4. Port-A-Cath removed on 02/14. Monitor blood culture from 02/15. Follow-up culture sensitivities. Check MRSA swab. Most likely patient will need at least 4 weeks of IV antibiotics. Will consult ID for further recommendations. If blood cultures positive will plan for echocardiogram. Patient denies any hardware. Complaining of back pain. If persistent bacteremia will plan to do CT of the back to rule out discitis. Restart home dose of pain medications. Continue with home dose of prednisone. Leukopenia: New. Continue to monitor. Could be in setting of sepsis versus in setting of Zosyn though unlikely because patient has had Zosyn only for few days. Repeat CBC in afternoon. Full code Regular diet Lovenox for DVT prophylaxis Attestations 2 Medical Necessity Statement*: Requires further hospitalization for management of Staphylococcus bacteremia in setting of Port-A-Cath infection Diagnoses Infection due to Port-A-Cath T80.219A Metastatic cancer to bone C79.51 Prostate cancer C61 Staphylococcus aureus bacteremia R78.81; B95.61 Leukopenia D72.819
--- NOTE | 2024-02-16 16:35 | ANE.PACU2 ---
Inpatient post-anesthesia follow up: Airway intact: Yes Vital signs: Temperature 98.5 F Pulse Rate 89 Respiratory Rate 18 Blood Pressure 134/76 Pulse Oximetry 98 Oxygen Delivery Me thod Room Air Oxygen Flow Rate Fraction of Inspir ed Oxygen Hydration adequate: Yes Nausea and vomiting: No Pain level: 1 Mental status: Baseline
[2024-02-16] MEDS: ferrous sulfate EC 325 mg Tablet PO (17:11)
[2024-02-16] MEDS: enoxaparin 40 mg/0.4 mL Syringe SUBCUT (21:49)
[2024-02-16] MEDS: pantoprazole 40 mg SDV IVP (21:49)
[2024-02-16] MEDS: HYDROcodone-acetaminophen 5-325 mg Tablet 1 TAB PO (21:50)
[2024-02-17] MEDS: vancomycin 1,500 MG/300 ML PIGGYBACK 200 MG IV (03:33)
[2024-02-17 04:00] VITALS: BP 109/61; PULSE 72; RESP 17; TEMP 37; O2SAT 97
[2024-02-17] MEDS: piperacillin-tazobactam 3.375 GM in sodium chloride 0.9% (plus) 50 ML IV (05:02)
[2024-02-17 06:07] LABS: Basophils % 1.2 %; Eosinophils % 1.8 %; Hematocrit 32.7 % (37-53); Lymphocytes # 0.7 10^3/uL (0.8-4.8); Lymphocytes % 42.7 %; Mean Corpuscular HGB Conc 33.3 g/dL (30-55); Mean Corpuscular Hemoglobin 31.7 pg (27-33); Mean Corpuscular Volume 95.1 fl (82-101); Mean Platelet Volume 9.3 fL (7.4-10.4); Monocytes # 0.2 10^3/uL (0.2-0.9); Monocytes % 8.8 %; Nucleated Red Blood Cells % 0 %; Platelet Count 170 10^3/cmm (157-399); Red Blood Count 3.44 10^6/uL (3.85-5.65); Red Cell Distribution Width 15.2 % (12.1-15.1); White Blood Count 1.71 10^3/uL (3.29-11.43)
[2024-02-17 06:18] LABS: Neutrophils # 0.72 10^3/uL (1.8-7.7)
[2024-02-17 06:31] LABS: Chol HDL Ratio 4.26 mg/dL (1.0-5.00); Cholesterol 213 mg/dL (0-200); HDL Cholesterol 50 mg/dL (60-100); LDL Cholesterol Calculated 135 mg/dL (50-129); Magnesium 2.2 mg/dL (1.7-2.3); Phosphorus 1.9 mg/dL (2.5-4.5); Triglycerides 142 mg/dL (0-150); VLDL Cholestrol Calculation 28 mg/dL (0-30)
[2024-02-17 06:35] LABS: Alanine Aminotransferase 14 U/L (0-41); Albumin Level 3.7 g/dL (3.5-5.2); Alkaline Phosphatase 297 U/L (40-130); Anion Gap 13.4 (5-19); Aspartate Amino Transferase 17 U/L (0-40); Blood Urea Nitrogen 10 mg/dL (6-20); Calcium 6.9 mg/dL (8.5-10.5); Carbon Dioxide 20 mmol/L (22-29); Chloride 109 mmol/L (98-107); Creatinine Clr Calc Pharmacy 109.2356; Globulin 2.4 g/dL (1.3-4.6); Glomerular Filtration Rate 121.4 mL/min (90-130); Glucose 101 mg/dL (65-115); Osmolality Calculated 285 mOsm/kg (285-295); Potassium 4.4 mmol/L (3.5-5.1); Sodium 138 mmol/L (136-145); Total Bilirubin 0.3 mg/dL (0.15-1.2); Total Protein 6.1 g/dL (6.6-8.7)
[2024-02-17 07:03] LABS: Folate Level 10.9 ng/mL (4.5-32.2)
[2024-02-17 07:28] VITALS: BP 128/86; PULSE 74; RESP 16; TEMP 36.6; O2SAT 96
[2024-02-17] MEDS: ferrous sulfate EC 325 mg Tablet PO ×2 (08:51→20:29)
[2024-02-17] MEDS: predniSONE 5 mg Tablet PO ×2 (08:51→20:29)
--- NOTE | 2024-02-17 11:08 | P.CONIM_ITS ---
Providers/Reason For Consult 2 Consulting Physician/Specialty*: Virginia Cameron MD / infectious disease Reason for Consult*: MSSA bacteremia Requesting Physician: Gregory Lpoez MD Attending Physician: Gregory Lopez MD Primary Care Provider: GADIEL Oakes History of Present Illness History of Present Illness Desi Lee is a 53 year old male With a past medical history of prostate cancer which was treated with radiation and 18 months of androgen deprivation therapy in 2019. Recently he was found to have recurrence of his disease by discovery of bony metastases and lymphadenopathy along the anterior left chest wall. He was seen by oncology and started treatment with Depo-Lupron and docetaxel with first dose of the latter being administered on February 10, 2024. He had port placed on February 05, 2024 to facilitate the above. After his infusion he started to notice continuous leakage from his port site. He states this was a combination of blood and pus. He was transferred to our hospital on February 14, 2024 where the port site was noted to be infected. He underwent removal of the port on February 15, 2024. Blood cultures have revealed Staph aureus now identified as MSSA. Other comorbidities at this time are neutropenia, likely as a side effect from recent chemo therapy. Review of Systems 2 General: Reports: 10 or more systems reviewed and unremarkable except in HPI and below Const: Denies: fever(s), chills or body aches Eyes: Denies: change in vision, blurry vision or photophobia ENMT: Reports: hoarseness; Denies: throat pain, enlarged tonsils, odynophagia or nasal congestion Card: Denies: chest pain, palpitations, irregular heart rhythm, edema, swelling of feet/ankles, lightheadedness, pre-syncope, dyspnea on exertion or orthopnea Resp: Denies: dyspnea, productive cough, non-productive cough, wheezing, stridor, pain on inspiration, change in phlegm color, hemoptysis or chest congestion GI: Denies: abdominal pain, nausea, vomiting, hematemesis, coffee ground emesis, dysphagia, heartburn, diarrhea, constipation, GI cramping, change in stool character, hematochezia or melena : Denies: flank pain, dysuria, urinary frequency, urinary urgency, urinary hesitancy or hematuria Musc: Denies: neck pain, back pain, extremity pain, joint swelling, joint warmth or deformity Neuro: Denies: headache(s), numbness in extremities, weakness in extremities, sensory changes, difficulty walking, frequent falls, dizziness, vertigo, behavioral changes, Slurred speech present or seizure-like activity Psych: Denies: anxiety, depression, suicidal ideation or homicidal ideation Endo: Denies: polyuria, polydipsia, tired all the time, cold intolerance or hot flashes Santhosh/Lymph: Denies: easy bruising or easy bleeding Medications/Allergies Home Medications Medication Instructions Recorded Confirmed Last Taken Type bicalutamide 50 mg tablet 50 mg PO DAILY #30 tabs 01/22/24 02/14/24 02/13/24 Rx acetaminophen 325 mg tablet 325 mg PO QID PRN Pain, Mild 01/29/24 02/14/24 02/14/24 History (Tylenol) ferrous sulfate 325 mg (65 mg 325 mg PO BID 02/05/24 02/14/24 02/13/24 History iron) tablet (FeroSul) prochlorperazine maleate 10 mg 10 mg PO Q4H PRN mild nausea #30 02/06/24 02/14/24 02/13/24 Rx tablet (Compazine) tabs hydrocodone 5 mg-acetaminophen 325 1 tab PO Q4H PRN pain 5 days #30 02/10/24 02/14/24 Unknown Rx mg tablet tabs lorazepam 1 mg tablet 0.5 - 1 mg (0.5 - 1 x 1 mg) PO Q6H 02/10/24 02/14/24 02/13/24 Rx PRN Severe Nausea #30 tabs prednisone 5 mg tablet 5 mg PO BID #42 tabs 02/10/24 02/14/24 02/13/24 Rx enzalutamide 40 mg tablet 80 mg PO BID 02/14/24 02/14/24 02/13/24 History Allergies Allergy/AdvReac Type Severity Reaction Status Date / Time No Known Allergies Allergy Verified 02/04/24 12:26 Current Medications Generic Name Dose Route Start Last Admin Trade Name Freq PRN Reason Stop Dose Admin Acetaminophen 650 mg 02/14/24 13:31 02/15/24 08:57 Acetaminophen 325 Mg Tablet PO 650 mg Q6H PRN Administration Mild/Mod Pain Or Temp >/= 101 Hydrocodone Bitart/Acetaminophen 1 tab 10/14/24 16:33 02/16/24 21:50 Hydrocodone-Acetaminophen 5-325 Mg Tablet PO 1 tab Q4H PRN Administration pain Enoxaparin Sodium 40 mg 02/15/24 20:00 02/16/24 21:49 Enoxaparin 40 Mg/0.4 Ml Syringe SUBCUT 40 mg Q24H LORA Administration Ferrous Sulfate 325 mg 02/16/24 18:00 02/17/24 08:51 Ferrous Sulfate Ec 325 Mg Tablet PO 325 mg BID LORA Administration Piperacillin Sod/Tazobactam 50 mls @ 12.5 mls/hr 02/15/24 18:00 02/17/24 05:02 Sod 3.375 gm/ Sodium Chloride IV 12.5 mls/hr Q8H LORA Administration Vancomycin HCl 1,500 mg in 300 mls @ 200 mls/hr 02/16/24 16:00 02/17/24 05:01 Vancocin IV Infused Q12H LORA Infusion Pantoprazole Sodium 40 mg 02/15/24 20:00 02/16/24 21:49 Pantoprazole 40 Mg Sdv IVP 40 mg Q24H LORA Administration Prednisone 5 mg 02/14/24 18:00 02/17/24 08:51 Prednisone 5 Mg Tablet PO 5 mg BID LORA Administration PFSH Acute 2 PFSH: Medical History Heatstroke Prostate cancer Surgical History History of lymph node biopsy (2019) History of prostate biopsy (01/19/24) Family History Father Colon cancer Brother Bone cancer Other Diabetes Hypertension Social History Smoking and tobacco/nicotine status: former use of tobacco/nicotine Quit status (tobacco/nicotine): has quit using Year quit tobacco: 2022 Former quit date comment: He previously smoked 1 PPD. Alcohol intake: former Year of sobriety/quit date alcohol: 2022 Former alcohol use details: He was never a heavy drinker. Substance/Drug Use: former Adopted: No Caregiver/support person: No Lives independently: No service: No Current occupational status: unemployed Do you think of yourself as: Straight/Heterosexual Current gender identity: Male Vitals/I&O/Wt Last Vital Signs Temp 97.9 F 02/17/24 07:28 Pulse 74 02/17/24 07:28 Resp 16 02/17/24 07:28 BP 128/86 02/17/24 07:28 Pulse Ox 96 02/17/24 07:28 O2 Del Method Room Air 02/17/24 07:28 02/16/24 02/17/24 02/17/24 22:59 06:59 14:59 Intake Total 1310 / 2200 830 / 3030 Balance 1310 / 2200 830 / 3030 Weight last 48 hrs Weight 89.358 kg Weight 89.358 kg Physical Exam 2 Narrative: General: No acute distress, AO x3 HEENT: PERRLA, pupils bilaterally equal and reactive, pallors not present Chest: Normal vesicular breath sounds, no added sounds, equal good air entry bilaterally CVS: S1-S2 regular, no murmurs, no tachycardia, no gallops, no rubs Abdomen: Soft, nontender, no organomegaly, bowel sounds present Neuro: No focal deficits, no facial deformity, AO x3, power 5/5 in all limbs Data 02/17/24 06:01 02/17/24 06:01 Micro: Microbiology 02/15/24 15:09 Catheter Tip Culture - Preliminary Sub-Clavian Tip Coag positive Staphylococcus 02/15/24 15:09 Gram Stain - Final Chest Anaerobic Culture - Preliminary Wound Culture - Preliminary Coag positive Staphylococcus 02/14/24 14:51 Blood Culture - Preliminary Blood Staphylococcus aureus S aureus M.I.C. RX --------- ------ * Ciprofloxacin <=1 S * Clindamycin <=0.5 R * Erythromycin >4 R * Levofloxacin <=1 S * Linezolid 4 S * Moxifloxacin <=0.5 S * Oxacillin <=0.25 S * Penicillin <=0.03 S * Rifampin <=1 S * Tetracycline <=4 S * Trimethoprim/Sulfamethoxazole <=0.5/9.5 S Vancomycin 2 S Daptomycin 1 S 02/16/24 03:04 Blood Culture - Preliminary Blood NEGATIVE TO DATE 10/14/24 11:05 Blood Culture - Preliminary Blood SPECIMEN COLLECTED Other data: MR/MR shoulder LT wo con* [id number] IMPRESSION: 1. Extensive bone lesions highly suspicious for metastatic disease involving the osseous structures of the shoulder. 2. Lymphadenopathy, partially visualized along the anterior LEFT chest wall. Recommend additional evaluation of the chest abdomen and pelvis to identify etiology of the lymphadenopathy. 3. Mild AC joint arthropathy. 4. Mild tendinopathy in the distal supraspinatus tendon. 5. Superior labral tear. 6. No muscle atrophy or edema. A&P Assessment and plan (1) Infection due to Port-A-Cath: (2) Staphylococcus aureus bacteremia: (3) Leukopenia: (4) Metastatic cancer to bone: Plan 53-year-old male with a past medical history of prostate cancer, now recently diagnosed with metastatic disease to bones, currently presenting with port site infection with resulting MSSA bacteremia. Patient is currently neutropenic likely from his recent chemotherapy with docetaxel. That is post port removal on February 15, 2024. Plan: Discontinue IV piperacillin/tazobactam and IV vancomycin Change to iv cefazolin 2g iv every 8 hrs for diercted treatment Recommend echocardiogram to asess for any valvular lesions wait for cx clearance at least 48 hrs prior to picc line placement Anticipate at least 6 weeks iv treatment monitor leukopenia, if persistent ANC < 500, to add levaquin ppx will follow Consult Attestations 2 Medical Necessity Statement: per admitting note Coding Level of Care Code Acute Code for Chg Fwd High MDM includes number and complexity of problems actively addressed during encounter, amount and/or complexity of data reviewed/ordered and described risk of complication, morbidity or mortality of management as documented Diagnoses Infection due to Port-A-Cath T80.219A Staphylococcus aureus bacteremia R78.81; B95.61 Leukopenia D72.819 Metastatic cancer to bone C79.51
--- NOTE | 2024-02-17 11:11 | USCV_ITS ---
Desi Lee Age: 53 Gender: M : 1970 Exam Date: 02/17/2024 15:03 Ordering Phys: Virginia Cameron MD Technologist: CT Exam [place] [facility] [place] Indication: BP: 128 / 77 HR: 75 Rhythm: Sinus Technical Quality: Adequate MEASUREMENTS (Male / Female) Normal Values 2D ECHO LVOT Diameter 2.1 cm LV Ejection Fraction MOD 4C 57.6 % LV Ejection Fraction MOD 2C 44.4 % LV Ejection Fraction 2C AL 47.0 % LA Diameter 3.1 cm RA Systolic Volume 4C AL 34.7 ml RA Systolic Volume 4C MOD 35.0 ml LA Sys Volume AL 33.1 cm cubed LA Sys Volume Index AL 16.2 cm cubed/m squared Aorta at Sinotubular Diameter 2.7 cm IVC Diameter 1.6 cm M-MODE LA Ao Ratio MM 1.2 AV Cusp Separation MM 2.2 cm DOPPLER AV Peak Velocity 100.0 cm/s LVOT Peak Velocity 97.0 cm/s AV Area Cont Eq vti 4.0 cm squared AV Area Cont Eq pk 3.3 cm squared MV Peak Velocity 76.0 cm/s MV Area PHT 4.2 cm squared Mitral E to A Ratio 0.7 TV Peak Velocity 135.0 cm/s TR Peak Velocity 203.0 cm/s TR Peak Gradient 16.5 mmHg TV Peak E Velocity 79.0 cm/s Right Atrial Pressure 3.0 mmHg Pulmonary Artery Systolic Pressu 19.5 mmHg PV Peak Velocity 120.5 cm/s FINDINGS Left Ventricle Normal left ventricular size and systolic function, EF 58%. No regional wall motion abnormalities. Grade I/IV diastolic dysfunction (abnormal relaxation filling pattern), normal to mildly elevated filling pressures. Right Ventricle Normal right ventricular size and systolic function. Right Atrium The right atrium is normal in size. Left Atrium The left atrium is normal in size. Mitral Valve No gross abnormalities noted Aortic Valve No gross abnormalities noted Tricuspid Valve No gross abnormalities noted Pulmonic Valve No gross abnormalities noted Pericardium No pericardial effusion. Aorta Normal aortic annulus size. IVC The inferior vena cava appears normal. CONCLUSIONS Normal left ventricular size and systolic function, EF 58%. No regional wall motion abnormalities. Grade I/IV diastolic dysfunction (abnormal relaxation filling pattern), normal to mildly elevated filling pressures. Normal cardiac chamber sizes. No significant valvular abnormalities. There is no pericardial effusion. There are no intracardiac masses. No similar previous studies are available for comparison Dr Bren Irizarry MD FACC (Electronically Signed) Final Date: 17 February 2024 22:30 S
[2024-02-17 11:15] VITALS: BP 128/77; PULSE 78; RESP 17; O2SAT 98
--- NOTE | 2024-02-17 15:05 | P.PN_ITS ---
Subjective 2 Subjective: No acute events overnight. Seen with spouse at bedside. Patient states he is feeling better. Has remained afebrile last 24 hours. Denies any nausea, vomiting, headache, and diarrhea. Vitals/I&O/Wt Last Vital Signs Temp 97.9 F 02/17/24 07:28 Pulse 78 02/17/24 11:15 Resp 17 02/17/24 11:15 BP 128/77 02/17/24 11:15 Pulse Ox 98 02/17/24 11:15 O2 Del Method Room Air 02/17/24 11:15 02/17/24 02/17/24 02/17/24 06:59 14:59 22:59 Intake Total 830 / 3030 480 / 480 Balance 830 / 3030 480 / 480 Weight last 48 hrs Weight 89.358 kg Weight 89.358 kg Physical Exam 2 Const: COMMON NORMALS: no acute distress and patient oriented x3 Neck/C-Spine: COMMON NORMALS: no JVD Chest: OTHER: Port removed from right chest, mildly bloodsoaked bandage present in the right hemithorax Resp: COMMON NORMALS: normal respiratory effort, No retractions, No use of accessory muscles and clear to auscultation bilaterally AUSCULTATION: clear to auscultation bilaterally Cardio: COMMON NORMALS: no JVD, regular rate, regular rhythm, S1 normal heart sound present and S2 normal heart sound present RATE: regular rate RHYTHM: regular rhythm HEART SOUNDS: S1 normal heart sound present and S2 normal heart sound present GI: COMMON NORMALS: Normal to inspection, nondistended, normoactive bowel sounds present, Soft to palpation and non-tender PALPATION: Yes Soft to palpation Extremity: COMMON NORMALS: no calf tenderness and no pedal edema Neuro: COMMON NORMALS: patient oriented x3 Psych: COMMON NORMALS: mental status grossly normal Data 02/17/24 06:01 02/17/24 06:01 Micro: Microbiology 02/15/24 15:09 Gram Stain - Final Chest Anaerobic Culture - Preliminary Wound Culture - Preliminary Coag positive Staphylococcus 02/16/24 11:05 Blood Culture - Preliminary Blood NEGATIVE TO DATE 02/15/24 15:09 Catheter Tip Culture - Preliminary Sub-Clavian Tip Coag positive Staphylococcus 02/14/24 14:51 Blood Culture - Preliminary Blood Staphylococcus aureus 02/16/24 03:04 Blood Culture - Preliminary Blood NEGATIVE TO DATE A&P Assessment and plan (1) Infection due to Port-A-Cath: (2) Staphylococcus aureus bacteremia: (3) Leukopenia: (4) Metastatic cancer to bone: (5) Prostate cancer: Plan Right chest Port-A-Cath infection: Staphylococcus bacteremia: MSSA bacteremia. Appreciate ID recommendations. Port-A-Cath removed on 02/14. Follow-up blood cultures from 02/15. Next antibiotics changed to cefazolin as per ID recommendation. Vancomycin and Zosyn discontinued. Follow-up echocardiogram. If persistent bacteremia will plan to do CT of the back to rule out discitis. Plan for at least 6 weeks of IV antibiotics as per ID team. Leukopenia: In setting of recent chemotherapy on 02/09. Will continue to monitor. If ANC persistently below 500 will add Levaquin. He persistently remains leukopenic for next 48 hours can plan for Procrit Continue with [place] 5 mg every 4 hours as needed. Change Dilaudid to 0.2 every 8 hours as needed. Full code Regular diet Lovenox for DVT prophylaxis Attestations 2 Medical Necessity Statement*: Requires further hospitalization for management of MSSA bacteremia in setting of right port catheter infection. Diagnoses Infection due to Port-A-Cath T80.219A Staphylococcus aureus bacteremia R78.81; B95.61 Leukopenia D72.819 Metastatic cancer to bone C79.51 Prostate cancer C61
[2024-02-17 16:00] VITALS: BP 130/82; PULSE 78; RESP 17; TEMP 36.9; O2SAT 98
[2024-02-17] MEDS: ceFAZolin 2,000 mg SDV 2000 MG IVP ×2 (16:05→23:29)
[2024-02-17 20:00] VITALS: BP 121/77; PULSE 78; RESP 17; TEMP 36.7; O2SAT 98
[2024-02-17] MEDS: HYDROcodone-acetaminophen 5-325 mg Tablet 1 TAB PO (20:28)
[2024-02-17] MEDS: enoxaparin 40 mg/0.4 mL Syringe SUBCUT (20:29)
[2024-02-17] MEDS: pantoprazole 40 mg SDV IVP (20:29)
[2024-02-18] VITALS: BP 125/7; PULSE 81; RESP 20; TEMP 36.4; O2SAT 96
[2024-02-18 04:00] VITALS: BP 150/85; PULSE 77; RESP 13; TEMP 36.6; O2SAT 97
[2024-02-18 06:19] LABS: Hematocrit 32.2 % (37-53); Lymphocytes # 0.9 10^3/uL (0.8-4.8); Lymphocytes % 44.3 %; Mean Corpuscular HGB Conc 34.2 g/dL (30-55); Mean Corpuscular Hemoglobin 31.4 pg (27-33); Mean Platelet Volume 9.7 fL (7.4-10.4); Monocytes # 0.2 10^3/uL (0.2-0.9); Neutrophils % 37.9 %; Nucleated Red Blood Cells % 1.4 %; Platelet Count 203 10^3/cmm (157-399); Red Cell Distribution Width 15.2 % (12.1-15.1)
--- NOTE | 2024-02-18 06:30 | PM.PN ---
Subjective Subjective: ID progress note no acute interim events pendng echo results WBC improving tolerating switch to cefazolin Blood cx thus far negative from 02/15 Vitals/I&O/Wt Last Vital Signs Temp 98.1 F 02/18/24 11:37 Pulse 68 02/18/24 11:37 Resp 18 02/18/24 11:37 BP 123/84 02/18/24 11:37 Pulse Ox 99 02/18/24 11:37 O2 Del Method Room Air 02/18/24 11:37 02/17/24 02/18/24 02/18/24 22:59 06:59 14:59 Intake Total 290 / 770 920 / 920 Balance 290 / 770 920 / 920 Weight last 48 hrs Weight 88.949 kg Weight 89.358 kg Physical Exam Narrative: General: No acute distress, AO x3 HEENT: PERRLA, pupils bilaterally equal and reactive, pallors not present Chest: Normal vesicular breath sounds, no added sounds, equal good air entry bilaterally CVS: S1-S2 regular, no murmurs, no tachycardia, no gallops, no rubs Abdomen: Soft, nontender, no organomegaly, bowel sounds present Neuro: No focal deficits, no facial deformity, AO x3, power 5/5 in all limbs Data 02/18/24 05:58 02/18/24 05:58 Micro: Microbiology 02/15/24 15:09 Catheter Tip Culture - Final Sub-Clavian Tip Staphylococcus aureus 02/15/24 15:09 Gram Stain - Final Chest Anaerobic Culture - Preliminary Wound Culture - Final Staphylococcus aureus 02/16/24 11:05 Blood Culture - Preliminary Blood NEGATIVE TO DATE 02/14/24 14:51 Blood Culture - Preliminary Blood Staphylococcus aureus A&P Assessment and plan (1) Infection due to Port-A-Cath: (2) Staphylococcus aureus bacteremia: (3) Leukopenia: (4) Metastatic cancer to bone: Plan 53-year-old male with a past medical history of prostate cancer, now recently diagnosed with metastatic disease to bones, currently presenting with port site infection with resulting MSSA bacteremia. Patient is currently neutropenic likely from his recent chemotherapy with docetaxel. That is post port removal on February 15, 2024. Plan: Discontinue IV piperacillin/tazobactam and IV vancomycin Change to iv cefazolin 2g iv every 8 hrs for diercted treatment Recommend echocardiogram to asess for any valvular lesions wait for cx clearance at least 48 hrs prior to picc line placement Anticipate at least 6 weeks iv treatment monitor leukopenia, if persistent ANC < 500, to add levaquin ppx 02/17: Will follow pending echocardiogram. Blood cx from 02/13 thus far negative. IF remains negative today, can proceed with PICC line. Tolerating cefazolin. Will recommend 6 weeks of iv cefazolin 2 g every 8 hrs over the next 6 weeks (02/15-03/29). Weekly labs incl CBC ,Creat, LFT while on above abx. Patient plans to do infusions at home with weekly PICc line care and labs at infusion center here. leukopenia improving, continue to monitor. Attestations Medical Necessity Statement*: per admitting Coding Level of Care Code Acute Code for [facility] Fwd Diagnoses Infection due to Port-A-Cath T80.219A Staphylococcus aureus bacteremia R78.81; B95.61 Leukopenia D72.819 Metastatic cancer to bone C79.51
[2024-02-18] MEDS: ceFAZolin 2,000 mg SDV 2000 MG IVP ×3 (06:38→22:42)
[2024-02-18 06:45] LABS: Alanine Aminotransferase 14 U/L (0-41); Albumin Level 3.7 g/dL (3.5-5.2); Alkaline Phosphatase 283 U/L (40-130); Aspartate Amino Transferase 17 U/L (0-40); Blood Urea Nitrogen 8 mg/dL (6-20); Calcium 7.1 mg/dL (8.5-10.5); Carbon Dioxide 20 mmol/L (22-29); Chloride 110 mmol/L (98-107); Creatinine Clr Calc Pharmacy 145.3256; Glomerular Filtration Rate 169.3 mL/min (90-130); Glucose 114 mg/dL (65-115); Osmolality Calculated 287 mOsm/kg (285-295); Sodium 139 mmol/L (136-145); Total Bilirubin 0.2 mg/dL (0.15-1.2); Total Protein 6.7 g/dL (6.6-8.7)
[2024-02-18 06:46] LABS: Magnesium 2.2 mg/dL (1.7-2.3)
--- NOTE | 2024-02-18 07:53 | P.PN_ITS ---
Subjective 2 Subjective: 53-year-old male with history of prostat e cancer who presented with Port-A-Cath infection and bacteremia. Patient is doing okay, currently on reverse isolation has his neutrophil count has trended down significantly after chemotherapy. Vitals/I&O/Wt Last Vital Signs Temp 97.9 F 02/18/24 04:00 Pulse 77 02/18/24 04:00 Resp 13 02/18/24 04:00 BP 150/85 02/18/24 04:00 Pulse Ox 97 02/18/24 04:00 O2 Del Method Room Air 02/18/24 04:00 02/17/24 02/18/24 02/18/24 22:59 06:59 14:59 Intake Total 290 / 770 Balance 290 / 770 Weight last 48 hrs Weight 196 lb 1.6 oz Weight 197 lb Physical Exam 2 Chest: OTHER: Upper chest wound was evaluated, it was noted to have some premature closing and therefore I decided to remove one of the sutures to make the opening at the level of the skin bigger, I then irrigated the wound and repack it. Data 02/18/24 05:58 02/18/24 05:58 Micro: Microbiology 02/15/24 15:09 Gram Stain - Final Chest Anaerobic Culture - Preliminary Wound Culture - Final Staphylococcus aureus 02/16/24 11:05 Blood Culture - Preliminary Blood NEGATIVE TO DATE 02/15/24 15:09 Catheter Tip Culture - Preliminary Sub-Clavian Tip Coag positive Staphylococcus 02/14/24 14:51 Blood Culture - Preliminary Blood Staphylococcus aureus 02/16/24 03:04 Blood Culture - Preliminary Blood NEGATIVE TO DATE A&P Assessment and plan (1) Leukopenia: (2) Infection due to Port-A-Cath: (3) Staphylococcus aureus bacteremia: Plan Patient showing excellent progression after excision of Port-A-Cath for Port-A-Cath infection with associated bacteremia. Wound will continue to be back on a twice daily basis while the patient is in the hospital and after that it can be done in a once daily basis. Currently healing well. Attestations 2 Medical Necessity Statement*: Per medical team Coding Level of Care Code Acute Code for g Fwd Diagnoses Leukopenia D72.819 Infection due to Port-A-Cath T80.219A Staphylococcus aureus bacteremia R78.81; B95.61
[2024-02-18 08:00] VITALS: BP 127/81; PULSE 73; RESP 16; TEMP 36.8; O2SAT 99
[2024-02-18] MEDS: ferrous sulfate EC 325 mg Tablet PO ×2 (08:42→17:07)
[2024-02-18] MEDS: predniSONE 5 mg Tablet PO ×2 (08:42→17:07)
[2024-02-18] MEDS: HYDROcodone-acetaminophen 5-325 mg Tablet 1 TAB PO ×2 (08:48→14:02)
[2024-02-18 11:37] VITALS: BP 123/84; PULSE 68; RESP 18; TEMP 36.7; O2SAT 99
--- NOTE | 2024-02-18 14:22 | P.PN_ITS ---
Subjective 2 Subjective: No acute events overnight. Has remained afebrile for the last 24 hours. Today morning states he is feeling a lot better. His appetite is improving. Did have soakage through the bandage at the port removal site. Vitals/I&O/Wt Last Vital Signs Temp 98.1 F 02/18/24 11:37 Pulse 68 02/18/24 11:37 Resp 18 02/18/24 11:37 BP 123/84 02/18/24 11:37 Pulse Ox 99 02/18/24 11:37 O2 Del Method Room Air 02/18/24 11:37 02/17/24 02/18/24 02/18/24 22:59 06:59 14:59 Intake Total 290 / 770 920 / 920 Balance 290 / 770 920 / 920 Weight last 48 hrs Weight 88.949 kg Weight 89.358 kg Physical Exam 2 Const: COMMON NORMALS: no acute distress and patient oriented x3 Neck/C-Spine: COMMON NORMALS: no JVD Chest: OTHER: Port removed from right chest, mildly bloodsoaked bandage present in the right hemithorax Resp: COMMON NORMALS: normal respiratory effort, No retractions, No use of accessory muscles and clear to auscultation bilaterally AUSCULTATION: clear to auscultation bilaterally Cardio: COMMON NORMALS: no JVD, regular rate, regular rhythm, S1 normal heart sound present and S2 normal heart sound present RATE: regular rate RHYTHM: regular rhythm HEART SOUNDS: S1 normal heart sound present and S2 normal heart sound present GI: COMMON NORMALS: Normal to inspection, nondistended, normoactive bowel sounds present, Soft to palpation and non-tender PALPATION: Yes Soft to palpation Extremity: COMMON NORMALS: no calf tenderness and no pedal edema Neuro: COMMON NORMALS: patient oriented x3 Psych: COMMON NORMALS: mental status grossly normal Data 02/18/24 05:58 02/18/24 05:58 Micro: Microbiology 02/15/24 15:09 Catheter Tip Culture - Final Sub-Clavian Tip Staphylococcus aureus 02/15/24 15:09 Gram Stain - Final Chest Anaerobic Culture - Preliminary Wound Culture - Final Staphylococcus aureus 02/16/24 11:05 Blood Culture - Preliminary Blood NEGATIVE TO DATE A&P Assessment and plan (1) Infection due to Port-A-Cath: (2) Staphylococcus aureus bacteremia: (3) Leukopenia: (4) Metastatic cancer to bone: (5) Prostate cancer: Plan Right chest Port-A-Cath infection: Staphylococcus bacteremia: MSSA bacteremia. Appreciate ID recommendations. Port-A-Cath removed on 02/14. Follow-up blood cultures from 02/15. Next antibiotics changed to cefazolin as per ID recommendation. Vancomycin and Zosyn discontinued. Follow-up echocardiogram. If persistent bacteremia will plan to do CT of the back to rule out discitis. Plan for at least 6 weeks of IV antibiotics as per ID team. Leukopenia: In setting of recent chemotherapy on 02/09. Will continue to monitor. If ANC persistently below 500 will add Levaquin. He persistently remains leukopenic for next 48 hours can plan for Procrit Continue with [place] 5 mg every 4 hours as needed. Change Dilaudid to 0.2 every 8 hours as needed. Full code Regular diet Lovenox for DVT prophylaxis Plan for the day: Follow-up blood cultures in OR cultures. Found growing MSSA. Blood culture from 02/15 so far negative. If remains negative and extremity 4 hours will plan for PICC line placement. Most likely patient would need 6 weeks of IV cefazolin 2 g every 8 hourly. Appreciate ID and surgical recommendations. Leukopenia improving. Most likely in setting of recent chemotherapy. Monitor CBC daily. Dressing as per surgical team. Attestations 2 Medical Necessity Statement*: Requires further hospitalization for MSSA bacteremia in setting of right Port-A-Cath infection, leukopenia in setting of recent chemotherapy Diagnoses Infection due to Port-A-Cath T80.219A Staphylococcus aureus bacteremia R78.81; B95.61 Leukopenia D72.819 Metastatic cancer to bone C79.51 Prostate cancer C61
[2024-02-18 16:00] VITALS: BP 125/75; PULSE 71; RESP 16; TEMP 36.8; O2SAT 100
[2024-02-18 20:00] VITALS: BP 128/86; PULSE 79; RESP 17; TEMP 36.6; O2SAT 99
[2024-02-18] MEDS: pantoprazole 40 mg SDV IVP (20:57)
[2024-02-18] MEDS: enoxaparin 40 mg/0.4 mL Syringe SUBCUT (20:57)
[2024-02-19] VITALS: BP 133/75; PULSE 82; RESP 18; TEMP 36.7; O2SAT 98
[2024-02-19 04:00] VITALS: BP 123/73; PULSE 72; RESP 17; TEMP 36.5; O2SAT 96
--- NOTE | 2024-02-19 05:15 | P.PN_ITS ---
Subjective 2 Subjective: ID progress note Afebrile, hemodynamically stable Blood cultures remain negative from February 16, 2024 Medications: Reviewed: Yes Vitals/I&O/Wt Last Vital Signs Temp 97.7 F 02/19/24 04:00 Pulse 72 02/19/24 04:00 Resp 17 02/19/24 04:00 BP 123/73 02/19/24 04:00 Pulse Ox 96 02/19/24 04:00 O2 Del Method Room Air 02/18/24 16:00 02/18/24 02/18/24 02/19/24 14:59 22:59 06:59 Intake Total 920 / 920 900 / 1820 400 / 2220 Balance 920 / 920 900 / 1820 400 / 2220 Weight last 48 hrs Weight 91.354 kg Weight 88.949 kg Weight 89.358 kg Physical Exam 2 Narrative: General: No acute distress, AO x3 HEENT: PERRLA, pupils bilaterally equal and reactive, pallors not present Chest: Normal vesicular breath sounds, no added sounds, equal good air entry bilaterally CVS: S1-S2 regular, no murmurs, no tachycardia, no gallops, no rubs Abdomen: Soft, nontender, no organomegaly, bowel sounds present Neuro: No focal deficits, no facial deformity, AO x3, power 5/5 in all limbs Data 02/18/24 05:58 02/18/24 05:58 Micro: Microbiology 02/15/24 15:09 Gram Stain - Final Chest Anaerobic Culture - Preliminary Wound Culture - Final Staphylococcus aureus 02/15/24 15:09 Catheter Tip Culture - Final Sub-Clavian Tip Staphylococcus aureus February 16, 2024: Blood culture peripheral negative to date Other data: [address] [address] Ultrasound Report Signed Patient: Desi Lee Unit #: [id number] : 1970 Age/Sex: 53 / M ADM Date: 02/14/24 Loc: [facility] Room/Bed: [facility] Attending Dr: Gregory Lopez MD Ordering Provider/Ordering MD: Virginia Cameron MD Date of Service: 02/17/24 Procedure(s): CV. echo complete* 13103 Accession Number(s): [id number] Report Number: [id number] Desi Lee Age: 53 Gender: M : 1970 Exam Date: 02/17/2024 15:03 Ordering Phys: Virginia Cameron MD Technologist: CT Exam Location: [facility] [place] Indication: BP: 128 / 77 HR: 75 Rhythm: Sinus Technical Quality: Adequate MEASUREMENTS (Male / Female) Normal Values 2D ECHO LVOT Diameter 2.1 cm LV Ejection Fraction MOD 4C 57.6 % LV Ejection Fraction MOD 2C 44.4 % LV Ejection Fraction 2C AL 47.0 % LA Diameter 3.1 cm RA Systolic Volume 4C AL 34.7 ml RA Systolic Volume 4C MOD 35.0 ml LA Sys Volume AL 33.1 cm cubed LA Sys Volume Index AL 16.2 cm cubed/m squared Aorta at Sinotubular Diameter 2.7 cm IVC Diameter 1.6 cm M-MODE LA Ao Ratio MM 1.2 AV Cusp Separation MM 2.2 cm DOPPLER AV Peak Velocity 100.0 cm/s LVOT Peak Velocity 97.0 cm/s AV Area Cont Eq vti 4.0 cm squared AV Area Cont Eq pk 3.3 cm squared MV Peak Velocity 76.0 cm/s MV Area PHT 4.2 cm squared Mitral E to A Ratio 0.7 TV Peak Velocity 135.0 cm/s TR Peak Velocity 203.0 cm/s TR Peak Gradient 16.5 mmHg TV Peak E Velocity 79.0 cm/s Right Atrial Pressure 3.0 mmHg Pulmonary Artery Systolic Pressu 19.5 mmHg PV Peak Velocity 120.5 cm/s FINDINGS Left Ventricle Normal left ventricular size and systolic function, EF 58%. No regional wall motion abnormalities. Grade I/IV diastolic dysfunction (abnormal relaxation filling pattern), normal to mildly elevated filling pressures. Right Ventricle Normal right ventricular size and systolic function. Right Atrium The right atrium is normal in size. Left Atrium The left atrium is normal in size. Mitral Valve No gross abnormalities noted Aortic Valve No gross abnormalities noted Tricuspid Valve No gross abnormalities noted Pulmonic Valve No gross abnormalities noted Pericardium No pericardial effusion. Aorta Normal aortic annulus size. IVC The inferior vena cava appears normal. CONCLUSIONS Normal left ventricular size and systolic function, EF 58%. No regional wall motion abnormalities. Grade I/IV diastolic dysfunction (abnormal relaxation filling pattern), normal to mildly elevated filling pressures. Normal cardiac chamber sizes. No significant valvular abnormalities. There is no pericardial effusion. There are no intracardiac masses. No similar previous studies are available for comparison A&P Assessment and plan (1) Infection due to Port-A-Cath: (2) Staphylococcus aureus bacteremia: (3) Leukopenia: (4) Metastatic cancer to bone: Plan 53-year-old male with a past medical history of prostate cancer, now recently diagnosed with metastatic disease to bones, currently presenting with port site infection with resulting MSSA bacteremia. Patient is currently neutropenic likely from his recent chemotherapy with docetaxel. That is post port removal on February 15, 2024. Plan: Discontinue IV piperacillin/tazobactam and IV vancomycin Change to iv cefazolin 2g iv every 8 hrs for diercted treatment Recommend echocardiogram to asess for any valvular lesions wait for cx clearance at least 48 hrs prior to picc line placement Anticipate at least 6 weeks iv treatment monitor leukopenia, if persistent ANC < 500, to add levaquin ppx 02/17: Will follow pending echocardiogram. Blood cx from 02/13 thus far negative. IF remains negative today, can proceed with PICC line. Tolerating cefazolin. Will recommend 6 weeks of iv cefazolin 2 g every 8 hrs over the next 6 weeks (02/15-03/29). Weekly labs incl CBC ,Creat, LFT while on above abx. Patient plans to do infusions at home with weekly PICc line care and labs at infusion center here. leukopenia improving, continue to monitor. February 19, 2024: Echocardiogram with LVEF 58% ; grade 1 diastolic dysfunction, normal cardiac chamber and no significant valvular abnormalities. Defer ARIES is unlikely to place change roof bolter, more likely source to be port infection. Status post port removal on February 14. Currently clinically doing well. PICC line today. Stable for discharge from ID standpoint on cefazolin 2 g IV every 8 hours for the next 6 weeks. Follow-up in ID clinic in 1 month. Attestations 2 Medical Necessity Statement*: Per admitting Coding Level of Care Code Acute Code for Chg Fwd Moderate MDM includes number and complexity of problems actively addressed during encounter, amount and/or complexity of data reviewed/ordered and described risk of complication, morbidity or mortality of management as documented Diagnoses Infection due to Port-A-Cath T80.219A Staphylococcus aureus bacteremia R78.81; B95.61 Leukopenia D72.819 Metastatic cancer to bone C79.51
[2024-02-19 05:36] LABS: Basophils % 0.9 %; Eosinophils % 0.6 %; Hematocrit 32.1 % (37-53); Lymphocytes # 1.4 10^3/uL (0.8-4.8); Mean Corpuscular HGB Conc 33.3 g/dL (30-55); Mean Corpuscular Hemoglobin 30.9 pg (27-33); Mean Corpuscular Volume 92.8 fl (82-101); Mean Platelet Volume 9.9 fL (7.4-10.4); Monocytes # 0.5 10^3/uL (0.2-0.9); Monocytes % 14.1 %; Neutrophils # 1.08 10^3/uL (1.8-7.7); Neutrophils % 33.8 %; Nucleated Red Blood Cells # 0.1 /100WBC; Nucleated Red Blood Cells % 2.2 %; Platelet Count 251 10^3/cmm (157-399); Red Blood Count 3.46 10^6/uL (3.85-5.65); Red Cell Distribution Width 15.4 % (12.1-15.1)
[2024-02-19 05:52] LABS: Magnesium 2.2 mg/dL (1.7-2.3)
[2024-02-19 06:00] LABS: Alanine Aminotransferase 17 U/L (0-41); Albumin Level 3.9 g/dL (3.5-5.2); Alkaline Phosphatase 276 U/L (40-130); Anion Gap 12.3 (5-19); Aspartate Amino Transferase 20 U/L (0-40); Blood Urea Nitrogen 11 mg/dL (6-20); Calcium 7.8 mg/dL (8.5-10.5); Carbon Dioxide 23 mmol/L (22-29); Chloride 108 mmol/L (98-107); Creatinine Clr Calc Pharmacy 126.1872; Globulin 2.8 g/dL (1.3-4.6); Glomerular Filtration Rate 141.7 mL/min (90-130); Glucose 107 mg/dL (65-115); Osmolality Calculated 288 mOsm/kg (285-295); Potassium 4.3 mmol/L (3.5-5.1); Sodium 139 mmol/L (136-145); Total Bilirubin 0.2 mg/dL (0.15-1.2); Total Protein 6.7 g/dL (6.6-8.7)
[2024-02-19] MEDS: ceFAZolin 2,000 mg SDV 2000 MG IVP ×2 (06:02→13:51)
[2024-02-19 06:07] LABS: Slide Review Slide Review Perform
--- NOTE | 2024-02-19 06:57 | XR_ITS ---
WS: [id number] Portable AP upright chest, 02/19/2024 Clinical Data: Post PICC insertion Comparison: Portable chest, 02/14/2024 Findings: The right PICC line enters the superior vena cava and ends in the midportion. No pneumothor ax is seen. XR/XR chest 1V portable [id number] Impression: Satisfactory placement of right PICC line.
--- NOTE | 2024-02-19 07:45 | PICC.NOTE ---
Single lumen PICC placed to right brachial vein. Referred to vascular access nurse for PICC placement due to need for IV antibiotics x 6 weeks. Risks and benefits discussed and informed consent obtained from patient. Right arm assessed with right brachial vein measuring 3.4 mm, straight, and apparent best choice for placement. Using sterile technique and MST, right brachial vein accessed x 1 stick. Mid-arm circumference measured 10 cm from right AC 33 cm. Trimmed cath 46 cm with 0 cm external length noted. CXR shows tip in SVC, in good position for use per radiologist. Line secured with stat-lock. Insertion site covered with Biopatch and TSM. Report given to bedside nurse, ANGELITA Judge. Pt given teaching over SASH method for antibiotic use. Taught how to flush PICC and check for blood return. Pt verbalized understanding. Case management updated on placement of PICC.
[2024-02-19 08:00] VITALS: BP 152/79; PULSE 77; RESP 15; TEMP 36.6; O2SAT 99
[2024-02-19] MEDS: predniSONE 5 mg Tablet PO (08:44)
[2024-02-19] MEDS: ferrous sulfate EC 325 mg Tablet PO (08:44)
--- NOTE | 2024-02-19 08:58 | P.DS_ITS ---
Discharge Providers Date of Admission: 02/14/24 12:58 Date of Discharge: February 19, 2024 Attending Provider at Admission: Gennaro Welsh MD Attending Provider at Discharge: Gregory Lopez MD Consults: ID: Dr. Cameron Surgery: Dr. Noel Lunsford Primary Care Provider: GADIEL Oakes Diagnoses at Discharge Discharge Diagnosis (1) Infection due to Port-A-Cath: Status: Acute (2) Staphylococcus aureus bacteremia: Status: Acute (3) Leukopenia: Status: Acute (4) Metastatic cancer to bone: Status: Acute Reason for Visit Reason for Visit: 278-2 Hospital Course Hospital Course Desi Lee is a 53 year old male With a past medical history of prostate cancer which was treated with radiation and 18 months of androgen deprivation therapy in 2019. Recently he was found to have recurrence of his disease by discovery of bony metastases and lymphadenopathy along the anterior left chest wall. He was seen by oncology and started treatment with Depo-Lupron and docetaxel with first dose of the latter being administered on February 10, 2024. He had port placed on February 05, 2024 to facilitate the above. After his infusion he started to notice continuous leakage from his port site. He states this was a combination of blood and pus. He was transferred to our hospital on February 14, 2024 where the port site was noted to be infected. He underwent removal of the port on February 15, 2024. Blood cultures have revealed Staph aureus now identified as MSSA. During hospitalization he was also found to have neutropenia which is thought to be in setting of recent chemotherapy on 02/09. Neutropenia and leukopenia seem to be resolving. Blood culture from 02/15 is so far negative. PICC line was placed on 02/18. ID was consulted. He has been discharged on IV cefazolin 2 g every 8 hourly for management of MSSA bacteremia for next 6 weeks. During hospitalization echocardiogram was done which ruled out infective endocarditis. Last date of antibiotic will be March 29. He has to follow-up outpatient weekly for PICC line dressing blood work. Physical Exam Const: COMMON NORMALS: no acute distress and patient oriented x3 Neck/C-Spine: COMMON NORMALS: no JVD Chest: OTHER: Port removed from right chest, mildly bloodsoaked bandage present in the right hemithorax Resp: COMMON NORMALS: normal respiratory effort, No retractions, No use of accessory muscles and clear to auscultation bilaterally AUSCULTATION: clear to auscultation bilaterally Cardio: COMMON NORMALS: no JVD, regular rate, regular rhythm, S1 normal heart sound present and S2 normal heart sound present RATE: regular rate RHYTHM: regular rhythm HEART SOUNDS: S1 normal heart sound present and S2 normal heart sound present GI: COMMON NORMALS: Normal to inspection, nondistended, normoactive bowel sounds present, Soft to palpation and non-tender PALPATION: Yes Soft to palpation Extremity: COMMON NORMALS: no calf tenderness and no pedal edema Neuro: COMMON NORMALS: patient oriented x3 Psych: COMMON NORMALS: mental status grossly normal Discharge Data Studies Completed and Pending Completed Studies During Hospitalization Category Date Time Status CXRP [XR chest 1V portable [id number]] Routine Exams 02/19/24 06:57 Completed CV. echo complete* [id number] Routine Ultrasound 02/17/24 11:11 Completed Pending at discharge Category Date Time Status Anaerobic Culture Routine Lab 02/15/24 15:09 Results Blood Culture Routine Lab 02/14/24 14:53 Results Blood Culture Stat Lab 02/16/24 11:05 Results Wound Culture and Gram Stain Routine Lab 02/15/24 15:09 Results Radiology Impressions Chest X-Ray 02/19/24 06:57 Impression: Satisfactory placement of right PICC line. Microbiology 02/15/24 15:09 Chest Gram Stain - Final 02/15/24 15:09 Chest Anaerobic Culture - Preliminary 02/15/24 15:09 Chest Wound Culture - Final Staphylococcus aureus 02/15/24 15:09 Sub-Clavian Tip Catheter Tip Culture - Final Staphylococcus aureus 02/16/24 11:05 Blood Blood Culture - Preliminary NEGATIVE TO DATE 02/14/24 14:51 Blood Blood Culture - Preliminary Staphylococcus aureus 02/16/24 03:04 Blood Blood Culture - Preliminary NEGATIVE TO DATE 02/14/24 14:53 Blood Blood Culture - Preliminary NEGATIVE TO DATE Echocardiogram: CONCLUSIONS Normal left ventricular size and systolic function, EF 58%. No regional wall motion abnormalities. Grade I/IV diastolic dysfunction (abnormal relaxation filling pattern), normal to mildly elevated filling pressures. Normal cardiac chamber sizes. No significant valvular abnormalities. There is no pericardial effusion. There are no intracardiac masses. No similar previous studies are available for comparison Dr Bren Irizarry MD FAC (Electronically Signed) Final Date: 17 February 2024 Laboratory Results WBC 3.20 10^3/uL (3.29-11.43) L 02/19/24 04:41 RBC 3.46 10^6/uL (3.85-5.65) L 02/19/24 04:41 Hgb 10.70 g/dL (11.27-16.99) L 02/19/24 04:41 Hct 32.1 % (37-53) L 02/19/24 04:41 MCV 92.8 fl (82-101) 02/19/24 04:41 MCH 30.9 pg (27-33) 02/19/24 04:41 MCHC 33.3 g/dL (30-55) 02/19/24 04:41 RDW 15.4 % (12.1-15.1) H 02/19/24 04:41 Plt Count 251 10^3/cmm (157-399) 02/19/24 04:41 MPV 9.9 fL (7.4-10.4) 02/19/24 04:41 Neut % (Auto) 33.8 % 02/19/24 04:41 Lymph % (Auto) 45.0 % 02/19/24 04:41 [place] % (Auto) 14.1 % 02/19/24 04:41 Eos % (Auto) 0.6 % 02/19/24 04:41 Baso % (Auto) 0.9 % 02/19/24 04:41 Neut # (Auto) 1.08 10^3/uL (1.8-7.7) L 02/19/24 04:41 Lymph # (Auto) 1.4 10^3/uL (0.8-4.8) 02/19/24 04:41 [place] # (Auto) 0.5 10^3/uL (0.2-0.9) 02/19/24 04:41 Eos # (Auto) 0.0 10^3/uL (0.0-0.8) 02/19/24 04:41 Baso # (Auto) 0.0 10^3/uL (0.0-0.1) 02/19/24 04:41 Nucleated RBC % (auto) 2.2 % 02/19/24 04:41 Nucleated RBCs # 0.1 /100WBC 02/19/24 04:41 ESR 13 mm/hr (0-10) H 02/14/24 14:51 Sodium 139 mmol/L (136-145) 02/19/24 04:41 Potassium 4.3 mmol/L (3.5-5.1) 02/19/24 04:41 Chloride 108 mmol/L (98-107) H 02/19/24 04:41 Carbon Dioxide 23 mmol/L (22-29) 02/19/24 04:41 Anion Gap 12.3 (5-19) 02/19/24 04:41 BUN 11 mg/dL (6-20) 02/19/24 04:41 Creatinine 0.7 mg/dL (0.7-1.2) 02/19/24 04:41 GFR Calculation 141.7 mL/min (90-130) H 02/19/24 04:41 Glucose 107 mg/dL (65-115) 02/19/24 04:41 Estimat Average Glucose 128 02/14/24 14:51 Hemoglobin A1c 6.1 % (4.0-6.0) H 02/14/24 14:51 Calculated Osmolality 288 mOsm/kg (285-295) 02/19/24 04:41 Lactic Acid 1.0 mmol/L (0.5-2.2) 02/14/24 14:51 Calcium 7.8 mg/dL (8.5-10.5) L 02/19/24 04:41 Phosphorus 1.9 mg/dL (2.5-4.5) L 02/17/24 06:01 Magnesium 2.2 mg/dL (1.7-2.3) 02/19/24 04:41 Iron 41 ug/dL (59-158) L 02/16/24 03:04 TIBC 205 mcg/dl 02/16/24 03:04 % Saturation 20.0 % (20-50) 02/16/24 03:04 Unsat Iron Binding 164 ug/dL (112-347) 02/16/24 03:04 Total Bilirubin 0.2 mg/dL (0.15-1.2) 02/19/24 04:41 AST 20 U/L (0-40) 02/19/24 04:41 ALT 17 U/L (0-41) 02/19/24 04:41 Alkaline Phosphatase 276 U/L (40-130) H 02/19/24 04:41 C-Reactive Protein 62.4 mg/L (0.0-4.9) H 02/14/24 14:51 NT-Pro-B Natriuret Pep 61 pg/mL (0-125) 02/14/24 14:51 Total Protein 6.7 g/dL (6.6-8.7) 02/19/24 04:41 Albumin 3.9 g/dL (3.5-5.2) 02/19/24 04:41 Globulin 2.8 g/dL (1.3-4.6) 02/19/24 04:41 Triglycerides 142 mg/dL (0-150) 02/17/24 06:01 Cholesterol 213 mg/dL (0-200) H 02/17/24 06:01 LDL Cholesterol, Calc 135 mg/dL (50-129) H 02/17/24 06:01 Total VLDL Cholesterol 28 mg/dL (0-30) 02/17/24 06:01 HDL Cholesterol 50 mg/dL (60-100) L 02/17/24 06:01 LDL/HDL Ratio 1.99 RATIO (0.00-3.22) 02/14/24 14:51 Cholesterol/HDL Ratio 4.26 mg/dL (1.0-5.00) 02/17/24 06:01 Vitamin B12 943 pg/mL (232-1245) 02/16/24 03:04 Folate 10.9 ng/mL (4.5-32.2) 02/17/24 06:01 Procalcitonin 0.24 ng/mL (0-0.5) 02/16/24 03:04 TSH 2.73 uIU/mL (0.27-4.20) 02/14/24 14:51 Nasal MRSA (PCR) Not detected (Negative) 02/16/24 13:33 Vancomycin Trough 9.9 ug/mL (10-15) L 02/16/24 03:04 Adenovirus (PCR) Not detected (NOT DETECT) 02/16/24 13:49 C. pneumoniae DNA (PCR) Not detected (NOT DETECT) 02/16/24 13:49 Coronavirus 229E (PCR) Not detected (NOT DETECT) 02/16/24 13:49 Human Metapneumovir PCR Not detected (NOT DETECT) 02/16/24 13:49 Influenza A (H1) PCR Not detected (NOT DETECT) 02/16/24 13:49 Influ A (H1/09) PCR Not detected (NOT DETECT) 02/16/24 13:49 Influenza A (H3) PCR Not detected (NOT DETECT) 02/16/24 13:49 Influenza Type A (PCR) Not detected (NOT DETECT) 02/16/24 13:49 Influenza Type B (PCR) Not detected (NOT DETECT) 02/16/24 13:49 M. pneumoniae (PCR) Not detected (NOT DETECT) 02/16/24 13:49 Parainfluenza 1 (PCR) Not detected (NOT DETECT) 02/16/24 13:49 Parainfluenza 2 (PCR) Not detected (NOT DETECT) 02/16/24 13:49 Parainfluenza 3 (PCR) Not detected (NOT DETECT) 02/16/24 13:49 Parainfluenza 4 (PCR) Not detected (NOT DETECT) 02/16/24 13:49 RSV Type A (PCR) Not detected (NOT DETECT) 02/16/24 13:49 RSV Type B (PCR) Not detected (NOT DETECT) 02/16/24 13:49 Entero/Rhino (PCR) Not detected (NOT DETECT) 02/16/24 13:49 SARS-CoV-2 (PCR) Not detected (NOT DETECT) 02/16/24 13:49 Vitals Last Vital Signs Temp 97.8 F 02/19/24 08:00 Pulse 77 02/19/24 08:00 Resp 15 02/19/24 08:00 BP 152/79 02/19/24 08:00 Pulse Ox 99 02/19/24 08:00 O2 Del Method Room Air 02/18/24 16:00 Discharge Plan Discharge Patient Disposition: Home Condition: Stable Prescriptions: Continued bicalutamide 50 mg tablet 50 mg PO DAILY Qty: 30 0RF acetaminophen [Tylenol] 325 mg tablet 325 mg PO QID PRN (Reason: Pain, Mild) hydrocodone-acetaminophen 5-325 mg tablet 1 tab PO Q4H MDD 6 tabs PRN (Reason: pain) 5 Days Qty: 30 0RF Rx Instructions: 1-2 tablets as needed every 4-6 hours for pain prochlorperazine maleate [Compazine] 10 mg tablet 10 mg PO Q4H PRN (Reason: mild nausea) Qty: 30 3RF ferrous sulfate [FeroSul] 325 mg (65 mg iron) tablet 325 mg PO BID enzalutamide 40 mg tablet 80 mg PO BID prednisone 5 mg Tablet 5 mg PO BID Qty: 42 5RF Rx Instructions: Take on days 1-21 of each cycle lorazepam 1 mg tablet 0.5 - 1 mg PO Q6H PRN (Reason: Severe Nausea) Qty: 30 3RF Discharge Orders: Discharge Order (Routine); Ordered 02/19/24 Ordered By: Gregory Lopez Other Ambulatory Orders: Miscellaneous Procedure (Order) Location: None Selected Ordered By: Gregory Lopez Referrals: [facility] [Outside] [facility] [Outside] Christiano Barbosa MD [Physician] - 03/03/24 9:55 am () Shawna Bang FNP [Primary Care Provider] - (We have notified your physician's clinic of the need for a follow-up appointment to be scheduled. If you have not heard from them within the next 2 business days, please call them directly. ) [facility] [Provider Group] - 1 month Discharge Diet: Cardiac Discharge Activity: Resume usual activity Patient Instructions: Acute Wound Care (DC), How to Care for Your PICC (Peripherally Inserted Central Catheter) (DC), How to Flush Your PICC (Peripherally Inserted Central Catheter) (GEN), Opioid Safety, Post Anesthesia Care Activity Restrictions/Additional Instructions: Continue with IV cefazolin 3 times a day for next 6 weeks. Last day of antibiotic 03/29. Weekly CBC, creatinine and LFT while been on antibiotics. Follow-up weekly at infusion center for PICC line dressing. PICC line to be removed after completion of IV antibiotic course. Discharge Attestations Time Spent in Discharge Care*: greater than 30 min Specific Discharge Activities: educating patient, educating and/or supporting family/caregiver, discussing with pcp/other providers, discussing with onsite case manager/social workers/dc planners, documenting/other paperwork and evaluating patient/reviewing data Status at Discharge: Cognitive status at discharge: cognitively intact , Behavioral status at discharge: cooperative , Functional status at discharge: independent ambulation , Overall status at discharge: patient is back to baseline Quality Metrics Clinical Quality Measures [ No reported AMI, CVA or VTE this stay] Coding Level of Care Code 17223 Total time (in minutes) for Discharge: 60 Diagnoses Infection due to Port-A-Cath T80.219A Staphylococcus aureus bacteremia R78.81; B95.61 Leukopenia D72.819 Metastatic cancer to bone C79.51
[2024-02-19 11:50] VITALS: BP 134/77; PULSE 74; RESP 16; TEMP 36.6; O2SAT 98
[2024-02-19] MEDS: HYDROcodone-acetaminophen 5-325 mg Tablet 1 TAB PO (13:50)
--- NOTE | 2024-02-19 14:06 | PC.NURSE ---
Instructed patient and companions at bedside how to do the dressing change and administer antibiotics as well as how to care for his picc line. Step by step instructions were printed on the discharge. Patient had all belongings and was discharged home with companions.
[2024-02-19 14:09] VITALS: BP 134/77; PULSE 74; RESP 16; TEMP 36.6; O2SAT 98
== END 2024-02-19 14:09 | disposition home or self-care (01) | DRG 253 ==
PROVIDERS: Surgery; Admitting Provider Family Medicine; PCP Nurse Practitioner Family; Visit Provider Student in an Organized Health Care Education/Training Program
PROC: 0JPT0WZ Removal of Totally Implantable Vascular Access Device from Trunk Subcutaneous Tissue and Fascia, Open Approach (ICD-10-PCS; CPT 36589; principal; 2024-02-15 01:00)
DX: T80.219A Unspecified infection due to central venous catheter, initial encounter (principal); C79.51 Secondary malignant neoplasm of bone; R78.81 Bacteremia; D84.821 Immunodeficiency due to drugs; A49.01 Methicillin susceptible Staphylococcus aureus infection, unspecified site; Y82.8 Other medical devices associated with adverse incidents; C61 Malignant neoplasm of prostate; D70.1 Agranulocytosis secondary to cancer chemotherapy; Z79.60 Long term (current) use of unspecified immunomodulators and immunosuppressants; Z87.891 Personal history of nicotine dependence; Z45.2 Encounter for adjustment and management of vascular access device
CPT/HCPCS: 36415; 36573; 71045; 80053; 80061; 80202; 82607; 82746; 83036; 83540; 83550; 83605; 83735; 83880; 84100; 84145; 84443; 85025; 85651; 86140; 87040; 87070; 87075; 87077; 87150; 87186; 87205; 87486; 87581; 87633; 93306; 94664; 96372; J0690; J1170; J1650; J2270; J2470; J2543; J2704; J3010; J3370; J3490; J7030; J7512

== ENCOUNTER 2024-03-02 09:30 | Oncology outpatient (recurring) (ONCR) | payer MEDICAID, SELFPAY ==
[2024-02-10 08:44] LABS: Basophils % 0.5 %; Eosinophils # 0.2 10^3/uL (0.0-0.8); Eosinophils % 2.9 %; Hematocrit 34.1 % (37-53); Lymphocytes # 1.5 10^3/uL (0.8-4.8); Lymphocytes % 22.7 %; Mean Corpuscular HGB Conc 33.1 g/dL (30-55); Mean Corpuscular Hemoglobin 31.1 pg (27-33); Mean Corpuscular Volume 93.9 fl (82-101); Mean Platelet Volume 9.2 fL (7.4-10.4); Monocytes # 0.5 10^3/uL (0.2-0.9); Neutrophils # 4.25 10^3/uL (1.8-7.7); Neutrophils % 64.2 %; Nucleated Red Blood Cells % 0 %; Platelet Count 236 10^3/cmm (157-399); Red Blood Count 3.63 10^6/uL (3.85-5.65); Red Cell Distribution Width 14.9 % (12.1-15.1); White Blood Count 6.61 10^3/uL (3.29-11.43)
[2024-02-10 09:22] LABS: Alanine Aminotransferase 15 U/L (0-41); Albumin Level 4.1 g/dL (3.5-5.2); Alkaline Phosphatase 456 U/L (40-130); Anion Gap 15.3 (5-19); Aspartate Amino Transferase 20 U/L (0-40); Blood Urea Nitrogen 17 mg/dL (6-20); Calcium 8.5 mg/dL (8.5-10.5); Carbon Dioxide 20 mmol/L (22-29); Chloride 107 mmol/L (98-107); Globulin 3.3 g/dL (1.3-4.6); Glomerular Filtration Rate 141.7 mL/min (90-130); Glucose 94 mg/dL (65-115); Osmolality Calculated 287 mOsm/kg (285-295); Potassium 4.3 mmol/L (3.5-5.1); Sodium 138 mmol/L (136-145); Total Bilirubin 0.2 mg/dL (0.15-1.2); Total Protein 7.4 g/dL (6.6-8.7)
[2024-02-10 11:25] VITALS: BP 145/85; PULSE 61; RESP 16; TEMP 35.9; O2SAT 99
[2024-02-10] MEDS: sodium chloride 0.9% 250 ML 75 ML IV (11:31)
[2024-02-10] MEDS: famotidine 20 mg/2 mL INJ IVP (11:32)
[2024-02-10] MEDS: diphenhydrAMINE 50 mg/mL SDV 1mL 25 MG IVP (11:39)
[2024-02-10] MEDS: palonosetron 0.25 mg/5 mL SDV IVP (12:02)
[2024-02-10] MEDS: dexamethasone 20 MG in sodium chloride 0.9% 50 ML 188 MG IV (12:02)
[2024-02-10] MEDS: DOCEtaxeL 149 MG in sodium chloride 0.9%(non-DEHP) 250 ML 264.9 MG IV (12:50)
[2024-02-10 14:03] VITALS: BP 151/95; PULSE 62; RESP 16; TEMP 36.4; O2SAT 98
[2024-02-10] MEDS: denosumab 120 mg SDV SUBCUT (14:09)
[2024-02-26 08:51] LABS: Hematocrit 29.5 % (37-53); Mean Corpuscular HGB Conc 32.5 g/dL (30-55); Mean Corpuscular Hemoglobin 31.3 pg (27-33); Mean Corpuscular Volume 96.1 fl (82-101); Mean Platelet Volume 9.5 fL (7.4-10.4); Platelet Count 212 10^3/cmm (157-399); Red Blood Count 3.07 10^6/uL (3.85-5.65); White Blood Count 6.88 10^3/uL (3.29-11.43)
[2024-02-26 09:13] LABS: Alanine Aminotransferase 16 U/L (0-41); Albumin Level 3.9 g/dL (3.5-5.2); Alkaline Phosphatase 249 U/L (40-130); Aspartate Amino Transferase 23 U/L (0-40); Blood Urea Nitrogen 14 mg/dL (6-20); Calcium 7.7 mg/dL (8.5-10.5); Carbon Dioxide 21 mmol/L (22-29); Chloride 110 mmol/L (98-107); Creatinine Clr Calc Pharmacy 144.9337; Globulin 2.6 g/dL (1.3-4.6); Glomerular Filtration Rate 169.3 mL/min (90-130); Glucose 97 mg/dL (65-115); Osmolality Calculated 288 mOsm/kg (285-295); Sodium 139 mmol/L (136-145); Total Bilirubin 0.2 mg/dL (0.15-1.2); Total Protein 6.5 g/dL (6.6-8.7)
[2024-02-26 09:15] LABS: Anion Gap 12.6 (5-19); Potassium 4.6 mmol/L (3.5-5.1)
[2024-02-26 09:27] LABS: Slide Review Slide Review Perform
[2024-02-26 09:28] LABS: Absolute Segmented Neutrophil 4.3 10/cmm (1.6-7.1); Band Neutrophils Absolute 0.3 10^3/cmm (0.0-1.2); Eosinophils 0 %; Lymphocytes 18 %; Monocytes Absolute 0.3 10^3/cmm (0.1-0.6); Segmented Neutrophils 63 %; Total Cells Counted 100 (0-100)
[2024-02-26 09:29] LABS: Absolute Neutrophil 4.6 10^3/cmm (1.4-6.5); Lymphocytes Absolute 1.4 10^3/cmm (1.2-3.4); Macrocytosis 1+; Platelet Estimate Normal (Normal); Polychromasia 1+
[2024-03-02 10:10] LABS: Basophils # 0.1 10^3/uL (0.0-0.1); Basophils % 0.7 %; Eosinophils % 0.1 %; Lymphocytes # 1.8 10^3/uL (0.8-4.8); Lymphocytes % 19.8 %; Mean Corpuscular HGB Conc 31.9 g/dL (30-55); Mean Corpuscular Hemoglobin 30.9 pg (27-33); Mean Platelet Volume 9.4 fL (7.4-10.4); Monocytes # 0.6 10^3/uL (0.2-0.9); Monocytes % 6.8 %; Neutrophils # 6.03 10^3/uL (1.8-7.7); Neutrophils % 67.5 %; Nucleated Red Blood Cells # 0.1 /100WBC; Nucleated Red Blood Cells % 1.5 %; Platelet Count 227 10^3/cmm (157-399); Red Cell Distribution Width 17.8 % (12.1-15.1); White Blood Count 8.94 10^3/uL (3.29-11.43)
[2024-03-02 10:26] LABS: Slide Review Slide Review Perform
[2024-03-02 10:39] LABS: Alanine Aminotransferase 8 U/L (0-41); Alkaline Phosphatase 257 U/L (40-130); Aspartate Amino Transferase 19 U/L (0-40); Blood Urea Nitrogen 13 mg/dL (6-20); Calcium 7.6 mg/dL (8.5-10.5); Carbon Dioxide 22 mmol/L (22-29); Chloride 107 mmol/L (98-107); Creatinine Clr Calc Pharmacy 125.7582; Globulin 2.8 g/dL (1.3-4.6); Glomerular Filtration Rate 141.7 mL/min (90-130); Glucose 117 mg/dL (65-115); Osmolality Calculated 293 mOsm/kg (285-295); Sodium 141 mmol/L (136-145); Testosterone Total 720.2 ng/dL (193-740); Total Bilirubin 0.2 mg/dL (0.15-1.2); Total Protein 6.8 g/dL (6.6-8.7)
[2024-03-02] MEDS: LEUPROLIDE 45 MG SUBCUT (11:47)
== END 2024-03-04 23:59 | disposition home or self-care (01) ==
PROVIDERS: Nurse Practitioner; PCP Nurse Practitioner Family; Visit Provider Internal Medicine Medical Oncology
DX: Z53.9 Procedure and treatment not carried out, unspecified reason (principal); Z51.11 Encounter for antineoplastic chemotherapy; C61 Malignant neoplasm of prostate; C79.51 Secondary malignant neoplasm of bone; Z79.899 Other long term (current) drug therapy
CPT/HCPCS: 36592; 80053; 84153; 84403; 85007; 85025; 96367; 96368; 96372; 96375; 96402; 96413; J0897; J1100; J1200; J2469; J3490; J7050; J9171; J9217

== ENCOUNTER 2024-03-30 09:00 | Oncology outpatient (recurring) (ONCR) | payer MEDICAID, SELFPAY ==
[2024-03-23 09:22] LABS: Basophils % 0.6 %; Eosinophils # 0.2 10^3/uL (0.0-0.8); Eosinophils % 3.2 %; Hematocrit 34.8 % (37-53); Lymphocytes # 1.2 10^3/uL (0.8-4.8); Lymphocytes % 17.7 %; Mean Corpuscular Hemoglobin 31.7 pg (27-33); Mean Corpuscular Volume 95.9 fl (82-101); Mean Platelet Volume 9.5 fL (7.4-10.4); Monocytes # 0.4 10^3/uL (0.2-0.9); Monocytes % 6.4 %; Neutrophils # 4.68 10^3/uL (1.8-7.7); Neutrophils % 71.2 %; Nucleated Red Blood Cells % 0 %; Platelet Count 190 10^3/cmm (157-399); Red Blood Count 3.63 10^6/uL (3.85-5.65); Red Cell Distribution Width 17.4 % (12.1-15.1); White Blood Count 6.57 10^3/uL (3.29-11.43)
[2024-03-23 09:50] LABS: Alanine Aminotransferase 6 U/L (0-41); Albumin Level 4.2 g/dL (3.5-5.2); Alkaline Phosphatase 231 U/L (40-130); Aspartate Amino Transferase 19 U/L (0-40); Blood Urea Nitrogen 18 mg/dL (6-20); Calcium 8.1 mg/dL (8.5-10.5); Carbon Dioxide 21 mmol/L (22-29); Chloride 107 mmol/L (98-107); Creatinine Clr Calc Pharmacy 126.6763; Glomerular Filtration Rate 141.7 mL/min (90-130); Glucose 100 mg/dL (65-115); Osmolality Calculated 288 mOsm/kg (285-295); Sodium 138 mmol/L (136-145); Testosterone Total 34.1 ng/dL (193-740); Total Bilirubin 0.2 mg/dL (0.15-1.2); Total Protein 7.2 g/dL (6.6-8.7)
[2024-03-23 09:53] LABS: Anion Gap 14.5 (5-19); Potassium 4.5 mmol/L (3.5-5.1)
[2024-03-23 11:12] VITALS: BP 154/102; PULSE 67; RESP 18; TEMP 36.3; O2SAT 99
[2024-03-23] MEDS: sodium chloride 0.9% 250 ML 75 ML IV (11:20)
[2024-03-23] MEDS: palonosetron 0.25 mg/5 mL SDV IVP (11:27)
[2024-03-23] MEDS: famotidine 20 mg/2 mL INJ IVP (11:29)
[2024-03-23] MEDS: diphenhydrAMINE 50 mg/mL SDV 1mL 25 MG IVP (11:32)
[2024-03-23] MEDS: denosumab 120 mg SDV SUBCUT (11:34)
[2024-03-23] MEDS: dexamethasone 20 MG in sodium chloride 0.9% 50 ML 188 MG IV (11:58)
[2024-03-23] MEDS: DOCEtaxeL 149 MG in sodium chloride 0.9%(non-DEHP) 250 ML 264.9 MG IV (12:40)
[2024-03-23 15:33] VITALS: BP 134/78; PULSE 74; RESP 18; TEMP 37.1; O2SAT 98
[2024-03-30 09:32] LABS: Basophils % 2.2 %; Eosinophils # 0.1 10^3/uL (0.0-0.8); Eosinophils % 2.7 %; Hematocrit 32.3 % (37-53); Lymphocytes # 0.9 10^3/uL (0.8-4.8); Lymphocytes % 47.3 %; Mean Corpuscular HGB Conc 34.4 g/dL (30-55); Mean Corpuscular Hemoglobin 32.2 pg (27-33); Mean Corpuscular Volume 93.6 fl (82-101); Mean Platelet Volume 10.5 fL (7.4-10.4); Monocytes # 0.1 10^3/uL (0.2-0.9); Neutrophils % 40.2 %; Nucleated Red Blood Cells % 0 %; Platelet Count 157 10^3/cmm (157-399); Red Blood Count 3.45 10^6/uL (3.85-5.65); Red Cell Distribution Width 16.5 % (12.1-15.1); White Blood Count 1.84 10^3/uL (3.29-11.43)
[2024-03-30 09:54] VITALS: BP 148/102; PULSE 78; RESP 18; TEMP 36.6; O2SAT 98
[2024-03-30 09:55] LABS: Alanine Aminotransferase 10 U/L (0-41); Alkaline Phosphatase 191 U/L (40-130); Aspartate Amino Transferase 24 U/L (0-40); Blood Urea Nitrogen 15 mg/dL (6-20); Carbon Dioxide 20 mmol/L (22-29); Chloride 105 mmol/L (98-107); Creatinine Clr Calc Pharmacy 126.6763; Glomerular Filtration Rate 141.7 mL/min (90-130); Glucose 102 mg/dL (65-115); Osmolality Calculated 281 mOsm/kg (285-295); Sodium 135 mmol/L (136-145); Total Bilirubin 0.3 mg/dL (0.15-1.2)
[2024-03-30 09:57] LABS: Anion Gap 14.4 (5-19); Potassium 4.4 mmol/L (3.5-5.1)
[2024-03-30 10:33] LABS: Neutrophils # 0.74 10^3/uL (1.8-7.7); Slide Review Slide Review Perform
== END 2024-04-03 23:59 | disposition home or self-care (01) ==
PROVIDERS: Internal Medicine Medical Oncology; Nurse Practitioner; PCP Nurse Practitioner Family; Visit Provider Internal Medicine Hematology & Oncology
DX: Z45.2 Encounter for adjustment and management of vascular access device; C61 Malignant neoplasm of prostate; Z53.9 Procedure and treatment not carried out, unspecified reason
CPT/HCPCS: 36591; 80053; 84153; 84403; 85025; 96372; 96375; 96413; J0897; J1100; J1200; J2469; J3490; J7050; J9171

== ENCOUNTER 2024-05-04 09:45 | Oncology outpatient (recurring) (ONCR) | payer MEDICAID, SELFPAY ==
[2024-04-13 11:11] LABS: Hematocrit 32.2 % (37-53); Mean Corpuscular HGB Conc 33.2 g/dL (30-55); Mean Corpuscular Hemoglobin 31.8 pg (27-33); Mean Corpuscular Volume 95.8 fl (82-101); Mean Platelet Volume 9.5 fL (7.4-10.4); Platelet Count 249 10^3/cmm (157-399); Red Blood Count 3.36 10^6/uL (3.85-5.65); Red Cell Distribution Width 16.8 % (12.1-15.1); White Blood Count 7.84 10^3/uL (3.29-11.43)
[2024-04-13 11:39] LABS: Alanine Aminotransferase 12 U/L (0-41); Alkaline Phosphatase 140 U/L (40-130); Aspartate Amino Transferase 18 U/L (0-40); Blood Urea Nitrogen 17 mg/dL (6-20); Calcium 8.7 mg/dL (8.5-10.5); Carbon Dioxide 22 mmol/L (22-29); Chloride 108 mmol/L (98-107); Creatinine Clr Calc Pharmacy 150.8238; Globulin 3.1 g/dL (1.3-4.6); Glomerular Filtration Rate 169.3 mL/min (90-130); Glucose 88 mg/dL (65-115); Osmolality Calculated 289 mOsm/kg (285-295); Sodium 139 mmol/L (136-145); Total Bilirubin 0.2 mg/dL (0.15-1.2); Total Protein 7.1 g/dL (6.6-8.7)
[2024-04-13 11:44] LABS: Slide Review Slide Review Perform
[2024-04-13 11:45] LABS: Absolute Eosinophils 0.1 10^3/cmm (0.0-0.7); Absolute Neutrophil 5.3 10^3/cmm (1.4-6.5); Absolute Segmented Neutrophil 4.9 10/cmm (1.6-7.1); Anisocytosis 1+; Band Neutrophils Absolute 0.3 10^3/cmm (0.0-1.2); Eosinophils 1 %; Giant Platelets Trace; Lymphocytes 13 %; Macrocytosis Trace; Monocytes Absolute 0.5 10^3/cmm (0.1-0.6); Platelet Estimate Normal (Normal); Polychromasia Trace; Segmented Neutrophils 63 %; Total Cells Counted 100 (0-100)
[2024-04-13 11:50] LABS: Anion Gap 13.6 (5-19); Potassium 4.6 mmol/L (3.5-5.1)
[2024-04-13] MEDS: sodium chloride 0.9% 500 ML 999 ML IV (13:59)
[2024-04-13] MEDS: palonosetron 0.25 mg/5 mL SDV IVP (14:05)
[2024-04-13] MEDS: famotidine 20 mg/2 mL INJ IVP (14:09)
[2024-04-13] MEDS: diphenhydrAMINE 50 mg/mL SDV 1mL 25 MG IVP (14:13)
[2024-04-13] MEDS: dexamethasone 20 MG in sodium chloride 0.9% 50 ML 188 MG IV (14:18)
[2024-04-13] MEDS: DOCEtaxeL 154 MG in sodium chloride 0.9%(non-DEHP) 250 ML 265.4 MG IV (15:08)
[2024-04-13] MEDS: sodium chloride 0.9% 250 ML 75 ML IV (15:08)
[2024-04-13 16:28] VITALS: BP 164/92; PULSE 68; RESP 16; TEMP 36.4; O2SAT 96
[2024-04-20 09:26] LABS: Basophils # 0.1 10^3/uL (0.0-0.1); Basophils % 1.6 %; Eosinophils % 0.5 %; Lymphocytes # 0.7 10^3/uL (0.8-4.8); Mean Corpuscular HGB Conc 33.8 g/dL (30-55); Mean Corpuscular Hemoglobin 32.3 pg (27-33); Mean Corpuscular Volume 95.8 fl (82-101); Mean Platelet Volume 10.8 fL (7.4-10.4); Monocytes # 0.1 10^3/uL (0.2-0.9); Monocytes % 3.4 %; Neutrophils # 2.91 10^3/uL (1.8-7.7); Neutrophils % 75.9 %; Nucleated Red Blood Cells % 0 %; Platelet Count 151 10^3/cmm (157-399); Red Blood Count 3.34 10^6/uL (3.85-5.65); Red Cell Distribution Width 16.2 % (12.1-15.1); White Blood Count 3.83 10^3/uL (3.29-11.43)
[2024-04-20 09:42] LABS: Alanine Aminotransferase 21 U/L (0-41); Alkaline Phosphatase 165 U/L (40-130); Blood Urea Nitrogen 14 mg/dL (6-20); Calcium 8.6 mg/dL (8.5-10.5); Carbon Dioxide 21 mmol/L (22-29); Chloride 109 mmol/L (98-107); Creatinine Clr Calc Pharmacy 129.2776; Globulin 2.9 g/dL (1.3-4.6); Glomerular Filtration Rate 141.7 mL/min (90-130); Glucose 101 mg/dL (65-115); Osmolality Calculated 289 mOsm/kg (285-295); Sodium 139 mmol/L (136-145); Total Bilirubin 0.3 mg/dL (0.15-1.2); Total Protein 6.9 g/dL (6.6-8.7)
[2024-04-20 09:58] LABS: Aspartate Amino Transferase 25 U/L (0-40)
[2024-04-20 10:02] LABS: Slide Review Slide Review Perform
[2024-04-26 14:32] LABS: Hematocrit 30.8 % (37-53); Mean Corpuscular HGB Conc 33.4 g/dL (30-55); Mean Corpuscular Hemoglobin 32.1 pg (27-33); Mean Platelet Volume 9.9 fL (7.4-10.4); Platelet Count 236 10^3/cmm (157-399); Red Blood Count 3.21 10^6/uL (3.85-5.65); Red Cell Distribution Width 16.5 % (12.1-15.1); White Blood Count 3.69 10^3/uL (3.29-11.43)
[2024-04-26 14:49] LABS: Alanine Aminotransferase 22 U/L (0-41); Albumin Level 3.9 g/dL (3.5-5.2); Alkaline Phosphatase 160 U/L (40-130); Blood Urea Nitrogen 18 mg/dL (6-20); Calcium 9.2 mg/dL (8.5-10.5); Carbon Dioxide 21 mmol/L (22-29); Chloride 107 mmol/L (98-107); Creatinine Clr Calc Pharmacy 113.1179; Globulin 3.1 g/dL (1.3-4.6); Glomerular Filtration Rate 121.4 mL/min (90-130); Glucose 113 mg/dL (65-115); Osmolality Calculated 291 mOsm/kg (285-295); Sodium 139 mmol/L (136-145); Total Bilirubin 0.2 mg/dL (0.15-1.2)
[2024-04-26 14:50] LABS: Anion Gap 15.8 (5-19); Aspartate Amino Transferase 24 U/L (0-40); Potassium 4.8 mmol/L (3.5-5.1)
[2024-04-26 15:12] LABS: Slide Review Slide Review Perform
[2024-04-26 15:15] LABS: Absolute Segmented Neutrophil 1.3 10/cmm (1.6-7.1); Band Neutrophils Absolute 0.1 10^3/cmm (0.0-1.2); Lymphocytes 41 %; Lymphocytes Absolute 1.5 10^3/cmm (1.2-3.4); Monocytes Absolute 0.6 10^3/cmm (0.1-0.6); Segmented Neutrophils 35 %; Total Cells Counted 100 (0-100)
[2024-04-26 15:16] LABS: Absolute Neutrophil 1.4 10^3/cmm (1.4-6.5); Platelet Estimate Normal (Normal)
[2024-04-26 15:17] LABS: Eosinophils 0 %
[2024-05-04 10:33] LABS: Hematocrit 35.6 % (37-53); Mean Corpuscular HGB Conc 32.9 g/dL (30-55); Mean Corpuscular Hemoglobin 31.8 pg (27-33); Mean Corpuscular Volume 96.7 fl (82-101); Mean Platelet Volume 9.7 fL (7.4-10.4); Platelet Count 233 10^3/cmm (157-399); Red Blood Count 3.68 10^6/uL (3.85-5.65); Red Cell Distribution Width 16.6 % (12.1-15.1); White Blood Count 9.86 10^3/uL (3.29-11.43)
[2024-05-04 10:56] LABS: Slide Review Slide Review Perform
[2024-05-04 10:57] LABS: Absolute Neutrophil 6.9 10^3/cmm (1.4-6.5); Absolute Segmented Neutrophil 6.7 10/cmm (1.6-7.1); Anisocytosis 1+; Band Neutrophils Absolute 0.2 10^3/cmm (0.0-1.2); Eosinophils 0 %; Lymphocytes 15 %; Lymphocytes Absolute 1.5 10^3/cmm (1.2-3.4); Macrocytosis Trace; Monocytes Absolute 0.7 10^3/cmm (0.1-0.6); Platelet Estimate Normal (Normal); Segmented Neutrophils 68 %; Total Cells Counted 100 (0-100)
[2024-05-04] MEDS: sodium chloride 0.9% 250 ML 75 ML IV (11:53)
[2024-05-04] MEDS: sodium chloride 0.9% 500 ML 999 ML IV (11:54)
[2024-05-04] MEDS: palonosetron 0.25 mg/5 mL SDV IVP (12:09)
[2024-05-04] MEDS: diphenhydrAMINE 50 mg/mL SDV 1mL 25 MG IVP (12:10)
[2024-05-04] MEDS: dexamethasone 4 mg/mL INJ 5 mL 12 MG IVP (12:13)
[2024-05-04] MEDS: famotidine 20 mg/2 mL INJ IVP (12:15)
[2024-05-04] MEDS: DOCEtaxeL 149 MG in sodium chloride 0.9%(non-DEHP) 250 ML 264.9 MG IV (13:07)
[2024-05-04 13:12] LABS: Alanine Aminotransferase 17 U/L (0-41); Albumin Level 4.3 g/dL (3.5-5.2); Alkaline Phosphatase 151 U/L (40-130); Anion Gap 16.8 (5-19); Aspartate Amino Transferase 21 U/L (0-40); Blood Urea Nitrogen 15 mg/dL (6-20); Calcium 8.7 mg/dL (8.5-10.5); Carbon Dioxide 21 mmol/L (22-29); Chloride 106 mmol/L (98-107); Creatinine Clr Calc Pharmacy 114.8527; Globulin 3.2 g/dL (1.3-4.6); Glomerular Filtration Rate 121.4 mL/min (90-130); Glucose 97 mg/dL (65-115); Osmolality Calculated 289 mOsm/kg (285-295); Potassium 4.8 mmol/L (3.5-5.1); Prostate Specific Antigen 0.831 ng/mL (0-4); Sodium 139 mmol/L (136-145); Total Bilirubin 0.3 mg/dL (0.15-1.2); Total Protein 7.5 g/dL (6.6-8.7)
[2024-05-04] MEDS: denosumab 120 mg SDV SUBCUT (14:27)
[2024-05-04 14:32] VITALS: BP 154/96; PULSE 73; O2SAT 98
== END 2024-05-04 23:59 | disposition home or self-care (01) ==
PROVIDERS: Internal Medicine Medical Oncology; Nurse Practitioner; PCP Nurse Practitioner Family; Visit Provider Internal Medicine Hematology & Oncology
DX: Z79.52 Long term (current) use of systemic steroids; Z51.11 Encounter for antineoplastic chemotherapy; Z79.899 Other long term (current) drug therapy; C61 Malignant neoplasm of prostate; C79.51 Secondary malignant neoplasm of bone; Z53.9 Procedure and treatment not carried out, unspecified reason
CPT/HCPCS: 36592; 80053; 84153; 85007; 85025; 96360; 96367; 96372; 96375; 96413; J0897; J1100; J1200; J2469; J3490; J7040; J7050; J9171

== ENCOUNTER 2024-06-04 08:04 | Oncology outpatient (recurring) (ONCR) | payer MEDICAID, SELFPAY ==
[2024-05-10 15:24] LABS: Eosinophils # 0.1 10^3/uL (0.0-0.8); Eosinophils % 1.5 %; Hematocrit 33.1 % (37-53); Lymphocytes # 1.2 10^3/uL (0.8-4.8); Lymphocytes % 28.6 %; Mean Corpuscular HGB Conc 34.7 g/dL (30-55); Mean Corpuscular Hemoglobin 32.3 pg (27-33); Mean Platelet Volume 10.4 fL (7.4-10.4); Monocytes # 0.2 10^3/uL (0.2-0.9); Monocytes % 3.7 %; Neutrophils # 2.61 10^3/uL (1.8-7.7); Neutrophils % 63.7 %; Nucleated Red Blood Cells % 0 %; Platelet Count 179 10^3/cmm (157-399); Red Blood Count 3.56 10^6/uL (3.85-5.65); Red Cell Distribution Width 15.6 % (12.1-15.1); White Blood Count 4.09 10^3/uL (3.29-11.43)
[2024-05-25 10:03] LABS: Basophils # 0.1 10^3/uL (0.0-0.1); Basophils % 0.7 %; Eosinophils % 0.2 %; Hematocrit 32.9 % (37-53); Lymphocytes # 1.3 10^3/uL (0.8-4.8); Lymphocytes % 15.1 %; Mean Corpuscular HGB Conc 32.5 g/dL (30-55); Mean Corpuscular Hemoglobin 31.7 pg (27-33); Mean Corpuscular Volume 97.3 fl (82-101); Mean Platelet Volume 9.5 fL (7.4-10.4); Monocytes # 0.8 10^3/uL (0.2-0.9); Monocytes % 9.4 %; Neutrophils # 5.88 10^3/uL (1.8-7.7); Neutrophils % 70.4 %; Nucleated Red Blood Cells % 0.4 %; Platelet Count 235 10^3/cmm (157-399); Red Blood Count 3.38 10^6/uL (3.85-5.65); Red Cell Distribution Width 15.9 % (12.1-15.1); White Blood Count 8.36 10^3/uL (3.29-11.43)
[2024-05-25 10:40] LABS: Alanine Aminotransferase 16 U/L (0-41); Albumin Level 4.1 g/dL (3.5-5.2); Alkaline Phosphatase 117 U/L (40-130); Anion Gap 16.8 (5-19); Blood Urea Nitrogen 14 mg/dL (6-20); Carbon Dioxide 21 mmol/L (22-29); Chloride 105 mmol/L (98-107); Globulin 2.8 g/dL (1.3-4.6); Glomerular Filtration Rate 141.7 mL/min (90-130); Glucose 98 mg/dL (65-115); Osmolality Calculated 286 mOsm/kg (285-295); Potassium 4.8 mmol/L (3.5-5.1); Prostate Specific Antigen 0.602 ng/mL (0-4); Sodium 138 mmol/L (136-145); Total Bilirubin 0.2 mg/dL (0.15-1.2); Total Protein 6.9 g/dL (6.6-8.7)
[2024-05-25 10:41] LABS: Aspartate Amino Transferase 24 U/L (0-40)
[2024-05-25] MEDS: sodium chloride 0.9% 500 ML 999 ML IV (11:47)
[2024-05-25] MEDS: dexamethasone 4 mg/mL INJ 5 mL 12 MG IVP (11:50)
[2024-05-25] MEDS: famotidine 20 mg/2 mL INJ IVP (11:55)
[2024-05-25] MEDS: palonosetron 0.25 mg/5 mL SDV IVP (11:58)
[2024-05-25] MEDS: diphenhydrAMINE 50 mg/mL SDV 1mL 25 MG IVP (12:02)
[2024-05-25] MEDS: DOCEtaxeL 149 MG in sodium chloride 0.9%(non-DEHP) 250 ML 264.9 MG IV (12:25)
[2024-05-25 15:42] VITALS: BP 136/86; PULSE 88; RESP 16; TEMP 36.9; O2SAT 96
--- NOTE | 2024-05-27 13:41 | N.ONRAD NP_ITS ---
Radiation Oncology New Patient Visit Patient: Desi Lee MR#: [id number] : 1970> Age: 53> Sex: Male> Dictated by: Dr. 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 Chief Complaint / History of Present Illness: Patient is a 53-year-old gentleman who was originally diagnosed with his prostate cancer in 2019. At that time he underwent radiation and ADT of 18 months duration. He had presented more recently with bilateral shoulder pain and adenopathy that it come up on both sides of his neck. Workup at that time showed extensive bony lesions and nearly every bone in his body. He had significant adenopathy throughout his system. Biopsy showed that this was consistent with his prostate cancer. He is currently undergoing his systemic therapy and has 1 more round of chemotherapy. He is here today as he has began to have increasing pain across the left shoulder area. He is recalcitrant to retrying any type of pain medicine secondary to his past history. Current Medications: acetaminophen (Tylenol) 325 mg PO QID PRN bicalutamide 50 mg PO DAILY enzalutamide 80 mg PO BID ferrous sulfate (FeroSul) 325 mg PO BID hydrocodone-acetaminophen 5-325 mg 1 tab PO Q4H PRN 5 days MDD 6 tabs lorazepam 0.5 - 1 mg (0.5 - 1 x 1 mg) PO Q6H PRN prednisone 5 mg PO BID prochlorperazine maleate (Compazine) 10 mg PO Q4H PRN tramadol 50 mg PO Q8H PRN Allergies: No Known Allergies Medical History: Heatstroke Prostate cancer Surgical History: History of lymph node biopsy (2019) History of prostate biopsy (01/19/24) Family History: Father Colon cancer Brother Bone cancer Other Diabetes Hypertension Social History: Smoking and tobacco/nicotine status: never used tobacco/nicotine Quit status (tobacco/nicotine): has quit using Year quit tobacco: 2022 Former quit date comment: He previously smoked 1 PPD. Alcohol intake: former Year of sobriety/quit date alcohol: 2022 Former alcohol use details: He was never a heavy drinker. Substance/Drug Use: former Adopted: No Caregiver/support person: No Lives independently: No service: No Current occupational status: unemployed Do you think of yourself as: Straight/Heterosexual Current gender identity: Male Current Complaints / Review of Systems: . Vital Signs: Performed on 05/27/2024 1:19 PM BMI - 34.573 kg/m2 (high), Height - 66 in, Weight - 214.2 lbs, Temperature - 95.9 f, Pulse - 73 /min, Respiration - 18 /min, O2 Sat - 99 %, Pain - 6, Fatigue - 0 and BP - 147/ 86 mm(hg)(high/). Physical Exam: General: Patient is in no apparent distress. He is companied by her friend HEENT: Normocephalic atraumatic. Pupils equal, sclera clear, extraocular muscles intact Pulmonary: Respiratory rate is regular nonlabored Cardiovascular: Regular rate and rhythm Thorax: He has palpable areas of tenderness across the T1-T2 vertebrae. This radiates around the left to the anterior portion of his chest. Extremities: Without clubbing cyanosis or edema Neurological: Alert and orient x 3. Gait and speech within normal limits Psych: Affect appropriate for current situation Performance Status: 100 Pathology: Lab: Imaging: See HPI Impression: Stage IV hormone resistant prostate cancer Plan: I reviewed with the patient the use of radiation and bony metastasis. We talked about how this would be another tool for him to use for pain management. I have had many patients that have some hesitancy when using pain medication and when they have metastatic disease the radiation becomes just another tool for them to use to control her pain without the toxicity of medication. We talked about a 2-week course of treatment and the potential success of treating areas for pain control. We reviewed the simulation process. We discussed the risks and side effects both acute and long-term. This point he is agreed to proceed. He will undergo simulation and begin his treatment shortly thereafter. Will either work with getting his treatments done between his immune/chemotherapy or after he has completed the next round on 15 June. Signed by: 05/27/2024 1:40:03 PM <<Signature on File>> Time spent with patient:30 CPT Code: CPT Code:
== END 2024-06-04 23:59 | disposition home or self-care (01) ==
PROVIDERS: Internal Medicine Medical Oncology; PCP Nurse Practitioner Family; Visit Provider Radiology Radiation Oncology
DX: Z51.0 Encounter for antineoplastic radiation therapy (principal); C79.51 Secondary malignant neoplasm of bone; C61 Malignant neoplasm of prostate
CPT/HCPCS: 36592; 77290; 77295; 77300; 77334; 77387; 77412; 80053; 84153; 85025; 96375; 96413; J1100; J1200; J2469; J3490; J7040; J7050; J9171

== ENCOUNTER 2024-06-15 09:45 | Oncology outpatient (recurring) (ONCR) | payer MEDICAID, SELFPAY ==
--- NOTE | 2024-06-08 08:41 | ONCRAD TMN_ITS ---
Radiation Oncology Weekly Treatment Management Patient: Jesus Fairbanks MR#: [id number] : 1970> Attending Physician: Dr. Nikole Godinez Date of Service: 06/08/2024 Fractions 5 out of 10 Referring Physician(s) : Diagnosis: C61 - Malignant neoplasm of prostate, Diagnosed 05/27/2024 (Active) C79.51 - Secondary malignant neoplasm of bone, Diagnosed 05/27/2024 (Active) Radiotherapy to date: Course: T2 and 2nd rib, Treatment Site: T2 SPINE 30Gy, Ref. ID: [id number], Energy: 15X, Dose/Fx (cGy): 300, #Fx: 5 / 10, Dose Correction (cGy): 0, Total Dose Delivered (cGy): 1,500, Start Date: 06/02/2024, Elapsed Days: 6 Reason for visit: The patient is being seen today as part of their regularly scheduled weekly on treatment visits to assess for acute toxicities from radiotherapy. Review of Systems: Patient says the pain is substantially better in his back. He had the flu over the weekend. He did become lightheaded and fell over the weekend. He did say his legs were hurting today but he attributes that to his sedentary schedule. Vital Signs: Performed on 06/08/2024 8:13 AM BMI - 34.638 kg/m2 (high), Height - 66 in, Weight - 214.6 lbs, Temperature - 95.1 f, Pulse - 88 /min, Respiration - 18 /min, O2 Sat - 97 %, Pain - 7, Fatigue - 0 and BP - 137/ 85 mm(hg). Physical Exam: No changes on exam Imaging: Radiation therapy imaging related to accurate target localization (i.e. KV, MV and CBCT) was reviewed. Appropriate changes, if any, were made to ensure treatment accuracy. Plan: Will continue with treatments as planned. I reminded him that his throat will get very sore in the next week or 2. That it will be temporary. Some dietary changes he may have to do with soft foods and plenty of liquids. Signed by: Dr. Nikole Godinez 06/08/2024 8:39:42 AM
[2024-06-08 09:03] LABS: Hematocrit 31.9 % (37-53); Mean Corpuscular HGB Conc 33.2 g/dL (30-55); Mean Corpuscular Hemoglobin 31.6 pg (27-33); Mean Corpuscular Volume 95.2 fl (82-101); Mean Platelet Volume 9.8 fL (7.4-10.4); Platelet Count 228 10^3/cmm (157-399); Red Blood Count 3.35 10^6/uL (3.85-5.65); Red Cell Distribution Width 15.1 % (12.1-15.1); White Blood Count 2.91 10^3/uL (3.29-11.43)
[2024-06-08 09:31] LABS: Alanine Aminotransferase 13 U/L (0-41); Albumin Level 3.8 g/dL (3.5-5.2); Alkaline Phosphatase 109 U/L (40-130); Blood Urea Nitrogen 16 mg/dL (6-20); Calcium 8.2 mg/dL (8.5-10.5); Carbon Dioxide 22 mmol/L (22-29); Chloride 103 mmol/L (98-107); Glomerular Filtration Rate 141.7 mL/min (90-130); Glucose 107 mg/dL (65-115); Osmolality Calculated 282 mOsm/kg (285-295); Sodium 135 mmol/L (136-145); Thyroid Stimulating Hormone 1.37 uIU/mL (0.27-4.20); Total Bilirubin 0.2 mg/dL (0.15-1.2); Total Protein 6.8 g/dL (6.6-8.7)
[2024-06-08 09:45] LABS: Anion Gap 14.3 (5-19); Aspartate Amino Transferase 24 U/L (0-40); Potassium 4.3 mmol/L (3.5-5.1)
[2024-06-08 10:17] LABS: Slide Review Slide Review Perform
[2024-06-08 10:18] LABS: Absolute Eosinophils 0.1 10^3/cmm (0.0-0.7); Absolute Neutrophil 1.3 10^3/cmm (1.4-6.5); Absolute Segmented Neutrophil 1.2 10/cmm (1.6-7.1); Band Neutrophils Absolute 0.1 10^3/cmm (0.0-1.2); Eosinophils 2 %; Lymphocytes 34 %; Lymphocytes Absolute 1.4 10^3/cmm (1.2-3.4); Monocytes Absolute 0.1 10^3/cmm (0.1-0.6); Platelet Estimate Decreased (Normal); Segmented Neutrophils 42 %; Total Cells Counted 50 (0-100)
--- NOTE | 2024-06-15 08:51 | N.ONRD TS_ITS ---
Radiation Oncology Treatment Summary/ OTV Patient: Desi Lee MR#: [id number] : 1970 Age: 53 Sex: Male Dictated by: Dr. Nikole Godinez Date of Service: 06/15/2024 Referring Physician(s) : Diagnosis: C61 - Malignant neoplasm of prostate, Diagnosed 05/27/2024 (Active) C79.51 - Secondary malignant neoplasm of bone, Diagnosed 05/27/2024 (Active) Radiotherapy to Date: Course: T2 and 2nd rib, Treatment Site: T2 SPINE 30Gy, Ref. ID: [id number], Energy: 15X, Dose/Fx (cGy): 300, #Fx: 10 / 10, Dose Correction (cGy): 0, Total Dose Delivered (cGy): 3,000, Start Date: 06/02/2024, End Date: 06/15/2024, Elapsed Days: 13 VITALS: Performed on 06/15/2024 8:28 AM BMI - 35.445 kg/m2 (high), Height - 66 in, Weight - 219.6 lbs, Temperature - 96.8 f, Pulse - 83 /min, Respiration - 17 /min, O2 Sat - 97 %, Pain - 6, Fatigue - 0 and BP - 118/ 75 mm(hg). Clinical Summary: The patient tolerated RT well. He had good resolution of his pain. At the completion of his treatment he developed a esophagitis just through the radiation portal. We talked about using Magic mix but it may be too far to really be treated with the Magic mix. I reviewed how long it would take the symptoms to resolve and he said at this point he will tough it out. He is getting lab drawn today we will coordinate additional follow-up with his next round of appointments. Plan: End of treatment today. Continue on the above medication until the skin reaction resolves. Follow up in one month. Signed by: Dr. Nikole Godinez>06/15/2024 8:49:20 AM <<Signature on File>>
[2024-06-15 09:17] LABS: Mean Corpuscular HGB Conc 32.5 g/dL (30-55); Mean Corpuscular Hemoglobin 31.9 pg (27-33); Mean Corpuscular Volume 98.2 fl (82-101); Mean Platelet Volume 9.3 fL (7.4-10.4); Platelet Count 327 10^3/cmm (157-399); Red Blood Count 3.26 10^6/uL (3.85-5.65); Red Cell Distribution Width 15.4 % (12.1-15.1); White Blood Count 7.65 10^3/uL (3.29-11.43)
[2024-06-15 09:44] LABS: Alanine Aminotransferase 12 U/L (0-41); Albumin Level 3.8 g/dL (3.5-5.2); Alkaline Phosphatase 106 U/L (40-130); Blood Urea Nitrogen 15 mg/dL (6-20); Calcium 8.8 mg/dL (8.5-10.5); Carbon Dioxide 23 mmol/L (22-29); Chloride 104 mmol/L (98-107); Globulin 3.3 g/dL (1.3-4.6); Glomerular Filtration Rate 121.4 mL/min (90-130); Glucose 108 mg/dL (65-115); Osmolality Calculated 289 mOsm/kg (285-295); Prostate Specific Antigen 0.619 ng/mL (0-4); Sodium 139 mmol/L (136-145); Total Bilirubin 0.2 mg/dL (0.15-1.2); Total Protein 7.1 g/dL (6.6-8.7)
[2024-06-15 10:04] LABS: Slide Review Slide Review Perform
[2024-06-15 10:06] LABS: Absolute Segmented Neutrophil 5.7 10/cmm (1.6-7.1); Band Neutrophils Absolute 0.3 10^3/cmm (0.0-1.2); Lymphocytes 15 %; Monocytes Absolute 0.4 10^3/cmm (0.1-0.6); Segmented Neutrophils 74 %; Total Cells Counted 100 (0-100)
[2024-06-15 10:09] LABS: Eosinophils 0 %; Lymphocytes Absolute 1.1 10^3/cmm (1.2-3.4); Platelet Estimate Normal (Normal)
[2024-06-15 10:31] LABS: Anion Gap 17.1 (5-19); Potassium 5.1 mmol/L (3.5-5.1)
[2024-06-15 10:32] LABS: Aspartate Amino Transferase 21 U/L (0-40)
[2024-06-15] MEDS: sodium chloride 0.9% 500 ML 999 ML IV (11:11)
[2024-06-15] MEDS: dexamethasone 4 mg/mL INJ 5 mL 12 MG IVP (11:12)
[2024-06-15] MEDS: sodium chloride 0.9% 250 ML 25 ML IV (11:12)
[2024-06-15] MEDS: diphenhydrAMINE 50 mg/mL SDV 1mL 25 MG IVP (11:23)
[2024-06-15] MEDS: famotidine 20 mg/2 mL INJ IVP (11:26)
[2024-06-15] MEDS: palonosetron 0.25 mg/5 mL SDV IVP (11:29)
[2024-06-15] MEDS: denosumab 120 mg SDV SUBCUT (11:32)
[2024-06-15] MEDS: [UNRECOGNIZED DRUG - REMARK] 514.9 MG IV (12:22)
[2024-06-15 14:56] VITALS: BP 123/70; PULSE 88; RESP 18; TEMP 36.6; O2SAT 99
== END 2024-07-02 23:59 | disposition home or self-care (01) ==
PROVIDERS: Internal Medicine Medical Oncology; PCP Nurse Practitioner Family; Visit Provider Radiology Radiation Oncology
DX: Z51.0 Encounter for antineoplastic radiation therapy; Z51.11 Encounter for antineoplastic chemotherapy; C61 Malignant neoplasm of prostate; Z79.899 Other long term (current) drug therapy; Z79.52 Long term (current) use of systemic steroids; Z95.828 Presence of other vascular implants and grafts; C79.51 Secondary malignant neoplasm of bone; Z53.9 Procedure and treatment not carried out, unspecified reason
CPT/HCPCS: 77336; 77387; 77412; 80053; 84153; 84443; 85007; 85025; 96365; 96367; 96375; 96377; 96413; J0897; J1100; J1200; J2469; J3490; J7030; J7040; J7050; J9171

== ENCOUNTER 2024-07-13 08:17 | Oncology outpatient (recurring) (ONCR) | payer MEDICAID, SELFPAY ==
[2024-07-13 08:44] LABS: Basophils % 0.5 %; Eosinophils # 0.2 10^3/uL (0.0-0.8); Eosinophils % 3.3 %; Hematocrit 30.5 % (37-53); Lymphocytes % 15.8 %; Mean Corpuscular HGB Conc 32.8 g/dL (30-55); Mean Corpuscular Hemoglobin 31.9 pg (27-33); Mean Corpuscular Volume 97.4 fl (82-101); Mean Platelet Volume 9.5 fL (7.4-10.4); Monocytes # 0.6 10^3/uL (0.2-0.9); Monocytes % 8.9 %; Neutrophils # 4.44 10^3/uL (1.8-7.7); Neutrophils % 70.9 %; Nucleated Red Blood Cells % 0 %; Platelet Count 232 10^3/cmm (157-399); Red Blood Count 3.13 10^6/uL (3.85-5.65); Red Cell Distribution Width 16.1 % (12.1-15.1); White Blood Count 6.27 10^3/uL (3.29-11.43)
[2024-07-13 09:12] LABS: Alanine Aminotransferase 13 U/L (0-41); Alkaline Phosphatase 113 U/L (40-130); Anion Gap 15.5 (5-19); Aspartate Amino Transferase 20 U/L (0-40); Blood Urea Nitrogen 17 mg/dL (6-20); Calcium 8.8 mg/dL (8.5-10.5); Carbon Dioxide 20 mmol/L (22-29); Chloride 106 mmol/L (98-107); Globulin 3.1 g/dL (1.3-4.6); Glomerular Filtration Rate 121.4 mL/min (90-130); Glucose 100 mg/dL (65-115); Osmolality Calculated 286 mOsm/kg (285-295); Potassium 4.5 mmol/L (3.5-5.1); Prostate Specific Antigen 0.335 ng/mL (0-4); Sodium 137 mmol/L (136-145); Total Bilirubin 0.3 mg/dL (0.15-1.2); Total Protein 7.1 g/dL (6.6-8.7)
[2024-07-13 09:14] LABS: Testosterone Total < 2.5 ng/dL (193-740)
[2024-07-13] MEDS: denosumab 120 mg SDV SUBCUT (09:46)
[2024-07-13 09:52] VITALS: BP 124/72; PULSE 68; RESP 16; TEMP 36.9; O2SAT 99
== END 2024-08-02 23:59 | disposition home or self-care (01) ==
PROVIDERS: Internal Medicine Medical Oncology; PCP Nurse Practitioner Family; Visit Provider Radiology Radiation Oncology
DX: C61 Malignant neoplasm of prostate (principal); C79.51 Secondary malignant neoplasm of bone; Z79.899 Other long term (current) drug therapy
CPT/HCPCS: 36415; 80053; 84153; 84403; 85025; 96372; J0897

== ENCOUNTER 2024-08-18 14:16 | Oncology outpatient (recurring) (ONCR) | payer MEDICAID, SELFPAY ==
[2024-08-11 12:48] LABS: Basophils % 0.6 %; Eosinophils # 0.1 10^3/uL (0.0-0.8); Eosinophils % 2.9 %; Hematocrit 33.7 % (37-53); Mean Corpuscular HGB Conc 32.9 g/dL (30-55); Mean Corpuscular Hemoglobin 31.4 pg (27-33); Mean Corpuscular Volume 95.5 fl (82-101); Mean Platelet Volume 9.6 fL (7.4-10.4); Monocytes # 0.5 10^3/uL (0.2-0.9); Monocytes % 9.4 %; Neutrophils # 3.23 10^3/uL (1.8-7.7); Neutrophils % 65.7 %; Nucleated Red Blood Cells % 0 %; Platelet Count 260 10^3/cmm (157-399); Red Blood Count 3.53 10^6/uL (3.85-5.65); Red Cell Distribution Width 15.4 % (12.1-15.1); White Blood Count 4.91 10^3/uL (3.29-11.43)
[2024-08-11 13:25] LABS: Alanine Aminotransferase 20 U/L (0-41); Albumin Level 4.3 g/dL (3.5-5.2); Alkaline Phosphatase 177 U/L (40-130); Anion Gap 14.6 (5-19); Aspartate Amino Transferase 21 U/L (0-40); Blood Urea Nitrogen 16 mg/dL (6-20); Calcium 8.8 mg/dL (8.5-10.5); Carbon Dioxide 20 mmol/L (22-29); Chloride 107 mmol/L (98-107); Creatinine Clr Calc Pharmacy 130.3482; Globulin 3.5 g/dL (1.3-4.6); Glomerular Filtration Rate 141.7 mL/min (90-130); Glucose 107 mg/dL (65-115); Osmolality Calculated 286 mOsm/kg (285-295); Potassium 4.6 mmol/L (3.5-5.1); Prostate Specific Antigen 0.186 ng/mL (0-4); Sodium 137 mmol/L (136-145); Total Bilirubin 0.2 mg/dL (0.15-1.2); Total Protein 7.8 g/dL (6.6-8.7)
[2024-08-11 13:27] LABS: Testosterone Total < 2.5 ng/dL (193-740)
[2024-08-11] MEDS: denosumab 120 mg SDV SUBCUT (15:03)
[2024-08-18] MEDS: LEUPROLIDE 45 MG SUBCUT (15:29)
== END 2024-09-01 23:59 | disposition home or self-care (01) ==
PROVIDERS: Internal Medicine Medical Oncology; PCP Nurse Practitioner Family; Visit Provider Radiology Radiation Oncology
DX: C61 Malignant neoplasm of prostate (principal); C79.51 Secondary malignant neoplasm of bone; Z79.818 Long term (current) use of other agents affecting estrogen receptors and estrogen levels
CPT/HCPCS: 36415; 80053; 84153; 84403; 85025; 96372; 96401; J0897; J9217

== ENCOUNTER 2024-09-08 10:47 | Oncology outpatient (recurring) (ONCR) | payer MEDICAID, SELFPAY ==
[2024-09-08 10:41] LABS: Basophils % 0.4 %; Eosinophils # 0.1 10^3/uL (0.0-0.8); Eosinophils % 2.4 %; Hematocrit 35.6 % (37-53); Lymphocytes # 0.7 10^3/uL (0.8-4.8); Lymphocytes % 11.8 %; Mean Corpuscular HGB Conc 32.6 g/dL (30-55); Mean Corpuscular Hemoglobin 31.3 pg (27-33); Mean Platelet Volume 9.7 fL (7.4-10.4); Monocytes # 0.4 10^3/uL (0.2-0.9); Monocytes % 6.7 %; Neutrophils # 4.33 10^3/uL (1.8-7.7); Neutrophils % 78.3 %; Nucleated Red Blood Cells % 0 %; Platelet Count 217 10^3/cmm (157-399); Red Blood Count 3.71 10^6/uL (3.85-5.65); Red Cell Distribution Width 14.9 % (12.1-15.1); White Blood Count 5.52 10^3/uL (3.29-11.43)
[2024-09-08 11:16] LABS: Alanine Aminotransferase 36 U/L (0-41); Albumin Level 4.2 g/dL (3.5-5.2); Alkaline Phosphatase 152 U/L (40-130); Anion Gap 15.1 (5-19); Aspartate Amino Transferase 33 U/L (0-40); Blood Urea Nitrogen 14 mg/dL (6-20); Calcium 8.2 mg/dL (8.5-10.5); Carbon Dioxide 19 mmol/L (22-29); Chloride 108 mmol/L (98-107); Creatinine Clr Calc Pharmacy 113.6031; Globulin 3.4 g/dL (1.3-4.6); Glomerular Filtration Rate 121.4 mL/min (90-130); Glucose 104 mg/dL (65-115); Osmolality Calculated 287 mOsm/kg (285-295); Potassium 4.1 mmol/L (3.5-5.1); Prostate Specific Antigen 0.118 ng/mL (0-4); Sodium 138 mmol/L (136-145); Total Bilirubin 0.4 mg/dL (0.15-1.2); Total Protein 7.6 g/dL (6.6-8.7)
[2024-09-08] MEDS: sodium chloride 0.9% 1,000 ML 75 ML IV (11:44)
[2024-09-08] MEDS: loperamide 2 mg Capsule 4 MG PO (11:46)
[2024-09-08 12:42] LABS: C.Diff PCR (Lab) NEGATIVE (Negative)
[2024-09-08] MEDS: denosumab 120 mg SDV SUBCUT (13:00)
== END 2024-10-02 23:59 | disposition home or self-care (01) ==
PROVIDERS: Nurse Practitioner; Nurse Practitioner Family; PCP Nurse Practitioner Family; Visit Provider Radiology Radiation Oncology
DX: C61 Malignant neoplasm of prostate (principal); C20 Malignant neoplasm of rectum; R19.7 Diarrhea, unspecified
CPT/HCPCS: 80053; 84153; 85025; 87425; 87493; 96361; 96372; 96377; J0897; J7030; J9999